=== PATIENT | male | born 1980 | race Caucasian/White ===

== ENCOUNTER 2024-04-07 09:08 | Outpatient (AMB) | payer OTHER, SELFPAY ==
[2024-04-07 09:13] VITALS: BP 116/70; PULSE 71; RESP 14; TEMP 36.6; O2SAT 97; BMI 37.6
--- NOTE | 2024-04-07 09:13 | A.OFFPC_ITS ---
Vital Signs 04/07/24 09:13 Height 5 ft 4 in Weight 219 lb 2 oz BMI 37.6 BP 116/70 Blood Pressure Location Rt brachial Position Sitting Respiration 14 Pulse 71 Pulse Source Pulse Oximeter Temp 98 F Temp Source Temporal Artery Scan Pulse Oximetry (%) 97 Oxygen Delivery Method Room Air Intake Visit Reasons: [employer], diabetes Chemistry Quality Control Analyst Required: No Accompanied by: Self / Same As Patient Allergies No Known Allergies Allergy (Verified 04/07/24 09:33) Medication List - Last Reconciled 04/07/24 by Roz Sharma CNP No Known Home Meds Tobacco use date assessed: 04/07/24 Dental Screening Dental Screen Date: 04/07/24 Did you have a dental visit in the last 12 months?: Yes Did you have a dental problem in the last 6 months where you did not have access to dental care?: No Was dental information given to patient?: Patient has dentist HPI HPI Comments History of Present Illness Details New patient Prior PCP:?[facility] Last office visit/CPE: About 5 years Acute issue(s): Diabetes -He is not currently on medication. He n otes that he was diagnosed 10 years ago and was on metformin until about 6 years ago. He notes that he stopped taking taking metformin due to massive stomach pains (especially when he to the medication without meals), diarrhea, and erectile dysfunction. He notes that he maintained a strict diet for a while. He has not been following a strict diet recently. He states that he is establishing care today because his employer has required for him to control his diabetes to maintain employment. 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 He is willing to try metformin again. No acute symptoms at this time PMHx: Diabetes, karatoconus of the right eye (does not wear prescription glass es) SurgHx: None FHx: Mom: cancer, diabetes. Dad: diabetes SocHx: Nonsmoker. Drinks alcohol occasionally. No recreational drugs He notes that his last eye exam was at [facility] in [place]: normal He is followed by [facility] Medical History (Updated 04/07/24 @ 10:06 by Roz Sharma CNP) Diabetes Surgical History (Updated 04/07/24 @ 09:28 by MILTON Montoya) No pertinent past surgical history Family History (Updated 04/07/24 @ 09:30 by MILTON Montoya) Mother Diabetes Cancer Father Diabetes Social History Housing: House Patient Tobacco Use Status: Never used Tobacco e-Cigarette/Vaping Use: Never Used service: No Current occupational status: employed 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 1. Little interest or pleasure in doing things: not at all 2. Feeling down, depressed, or hopeless: not at all 3. Trouble falling or staying asleep, or sleeping too much: not at all 4. Feeling tired or having little energy: not at all 5. Poor appetite or overeating: not at all 6. Feeling bad about yourself - or that you are a failure or have let yourself or your family down: not at all 7. Trouble concentrating on things, such as reading the newspaper or watching television: not at all 8. Moving or speaking so slowly that other people could have noticed. Or the opposite - being so fidgety or restless that you have been moving around a lot more than usual: not at all 9. Thoughts that you would be better off or of hurting yourself in some way: not at all Total score: 0 Depression Screening Interpretation: Negative Depression Screening Done: Yes [id number] - PHQ-9 Billing: Yes Source: Developed by Drs. Tu Downs, Mariely Salazar, Lui Moseley and colleagues, with an educational alpa from [employer]. Thrive Questionnaire Date Thrive assessed: 04/07/24 I am a: Patient What is your living situation today?: I have a steady place to live Within the past 12 months, did the food you bought not last and you didn't have the money to get more?: Never true Within the past 12 months, did you worry whether your food would run out before you got money to buy more?: Never true Do you have trouble paying for medicines?: No Do you have trouble getting transportation to medical appointments?: No Do you have trouble paying your heating and electricity bill?: No Do you have trouble taking care of your child, family member or friend?: No Do you have trouble with day-to-day activities such as bathing, preparing meals, shopping, managing finances, etc.?: No Are you currently unemployed and looking for a job?: No Are you interested in more education?: No Please select the resources that you would like help with: None Currently or been in a relationship where the following occur: no concerns reported THRIVE Score: 0 AUDIT C Alcohol Use Questionnaire (AUDIT-C) 1. How often do you have a drink containing alcohol?: Monthly or less 2. How many drinks containing alcohol do you have on a typical day when you are drinking?: 1 or 2 3. How often do you have six or more drinks on one occasion?: Never Total Score: 1 CHRIS-7 AMB Questionnaire CHRIS-7 Date CHRIS - 7 assessed: 04/07/24 Feeling nervous, anxious, or on edge: 0 = Not at all Not being able to stop or control worryin = Not at all Worrying too much about different things: 0 = Not at all Trouble relaxin = Not at all Being so restless that it is hard to sit still: 0 = Not at all Becoming easily annoyed or irritable: 1 = Several days Feeling afraid as if something awful might happen: 0 = Not at all Total CHRIS-7 score (0-4 normal; 5-9 mild; 10-14 moderate; 15-21 severe): 1 Source: Developed by Drs. Tu Downs, Mariely Salazar, Lui Moseley and colleagues, with an educational alpa from [employer]. CHRIS-7 Assessment Billing CHRIS-7 Assessment Tool: CHRIS-7 Assessment 87331 Review of Systems Const Details: Denies chills, Denies fatigue, Denies fever(s), Denies headache(s) and Denies weakness HEENT Denies change in vision, Denies dizziness, Denies headache(s), Denies hearing loss, Denies nasal congestion, Denies sinus pain, Denies sinus pressure and Denies sore throat Card Denies chest pain, Denies lightheadedness, Denies dyspnea and Denies other (palpitations) Resp Denies cough, Denies dyspnea and Denies wheezing GI Denies abdominal pain, Denies melena, Denies hematochezia, Denies change in bowel habits, Denies dyspepsia and Denies nausea Denies hematuria and Denies dysuria Musc Denies abnormal gait, Denies myalgias, Denies arthralgias, Denies numbness and Denies tingling Skin/Breast Denies rash, Denies unusual bruising and Denies wounds Neuro Denies abnormal gait, Denies dizziness, Denies headache(s), Denies memory loss, Denies numbness, Denies Sensory deficit (Neuro), Denies tingling and Denies weakness Psych Denies anxiety, Denies depression and Denies memory loss Endo Denies cold intolerance, Denies fatigue, Denies heat intolerance, Denies polydipsia and Denies polyuria Hesham/Lymph Denies easy bleeding and Denies easy bruising Aller/Immun Denies wheezing Physical exam (Primary Care) Vital Signs: Last Vital Signs Temp 98 F 04/07/24 09:13 Pulse 71 04/07/24 09:13 Resp 14 04/07/24 09:13 BP 116/70 04/07/24 09:13 Pulse Ox 97 04/07/24 09:13 Oxygen Delivery Method Room Air 04/07/24 09:13 BMI result Body Mass Index 37.6 Tobacco/Smoking Status: Tobacco use Status Tobacco use date assessed 04/07/24 04/07/24 09:23 Patient Tobacco Use Status Never used Tobacco 04/07/24 09:23 e-Cigarette/Vaping Use Never Used 04/07/24 09:23 PHQ-9: PHQ-9 Score PHQ-9: Total score 0 04/07/24 09:30 Depression Screening Interpretation: Negative Thrive Assessment: Date of Thrive Assessment Date Thrive assessed 04/07/24 04/07/24 09:23 Currently or been in a relationship where the following occur: no concerns reported Const Other: General: no acute distress, well developed, alert and awake Nutritional Appearance: well nourished Orientation/consciousness: patient oriented x3 HENMT Head: Yes normocephalic and Yes atraumatic Ears: hearing grossly normal bilaterally and TM's normal bilaterally General nose exam: Normal external nose present and Normal nares present Mouth: Normal oral and palatal mucosa present and moist mucous membranes Teeth and gingiva: dentition normal Throat: Yes oropharynx normal Eyes Pupils: Equal, round and reactive pupils present and Pupil accommodation reflex normal EOM: EOMs intact bilaterally Neck Neck: Yes normal visual inspection, Yes no lymphadenopathy and Yes trachea midline Thyroid: Thyroid normal Carotids: no bruits Lymphatic: no lymphadenopathy noted Chest Chest palpation & inspection: normal inspection of the chest Resp Effort & Inspection: normal respiratory effort Auscultation: clear to auscultation bilaterally Cardio Rate: regular rate Rhythm: regular rhythm Heart sounds: S1 normal heart sound present, S2 normal heart sound present, no gallops, no murmurs and no rubs Bruits: no abdominal aortic bruits and no carotid bruits GI Palpation (GI): No Abdominal aortic bruit present, Soft to palpation, nontender, No hepatosplenomegaly present and No Rebound tenderness present Auscultation: normal bowel sounds General: Yes no CVA tenderness Back/Spine/Pelvis Back: no CVA tenderness Cervical Spine: cervical ROM normal and No Cervical spine tenderness Thoracic/Lumbar Spine: thoraco-lumbar ROM normal, No pain with thoraco-lumbar ROM, No thoracic spinal tenderness and No lumbar spinal tenderness Skin General: warm and dry. Normal skin color. Normal skin turgor Lesions: no lesions Rashes: no rashes Trauma: no lacerations or abrasions Wounds: no wounds Nails: normal Neuro General: patient oriented x3, gait normal and CN's II-XI intact bilaterally Cranial nerves: Yes Equal, round and reactive pupils present Cognition (Neuro): normal cognition Gait exam (Neuro): Normal gait present Motor exam (neuro): 5/5 motor strength present throughout Sensory Exam: No Sensory deficit (Neuro) Deep tendon reflexes (DTR's): Right patellar reflex intensity grade: 2+ and Left patellar reflex intensity grade: 2+ Extrem General: Yes normal to inspection, No edema and No calf tenderness Psych Appearance: grossly normal Affect: normal affect Attitude: cooperative Thought process: Normal thought process present Results AMB Hemoglobin A1c AMB Hemoglobin A1c 9.4 % Last Edit by MILTON Montoya on 04/07/24 09:3 3 Results Reviewed Results Reviewed: Laboratory Last Values Hgb A1c (Clinic) 9.4 % (4.0-6.0) H 04/07/24 09:30 Assessment and Plan Assessment & Plan (1) Normal physical examination, routine: Code(s): Z00.00 - Encounter for general adult medical examination without abnormal findings Plan: No significant physical restrictions or limitations noted Continue current treatment regimen Healthy diet and routine exercise encouraged Advised to sign a release to obtain health record from his nurse advocate Follow-up in 1 month for diabetes and labs review or return sooner with symptoms or concerns Verbalized understanding and agreed with treatment plan (2) Diabetes: Code(s): E11.9 - Type 2 diabetes mellitus without complications Plan: A1c today is 9.4%, above goal of less than 7.0% Metformin 500 mg twice daily ordered. Advised to take as prescribed and with meal. Instructed on the risks, benefits, and potential adverse reaction of the medication ADA diet, including limiting carbs such as rice, bread, pasta, potatoes, and routine exercise encouraged Advised to check his fasting and random glucose daily, record readings, and bring to next appointment Declines referral to dietitian/director of critical care or diabetic nurse navigator Follow-up in 1 month or return sooner with symptoms or concerns Verbalized understanding and agreed with treatment plan (3) Keratoconus of right eye: Code(s): H18.601 - Keratoconus, unspecified, right eye Plan: No acute symptoms Followed by ophthalmology (4) Obesity (BMI 30-39.9): Code(s): E66.9 - Obesity, unspecified Plan: He currently weighs 219 lb, BMI is 37.6 Declines referral to dietitian/director of critical care or weight management Healthy diet and routine exercise encouraged Follow-up with symptoms or concerns Verbalized understanding and agreed with the treatment plan (5) Laboratory tests ordered as part of a complete physical exam (CPE): Code(s): Z00.00 - Encounter for general adult medical examination without abnormal findings Plan: Fasting labs ordered as part of a complete physical exam. Advised to fast for at least 10 hours before getting labs drawn. May drink water Verbalized understanding and agreed with treatment plan. Orders: Orders Complete Blood Count Auto Diff Today Z00.00 - Encounter for general adult medical examination without abnormal findings TSH reflex Free T4 Today Z00.00 - Encounter for general adult medical examination without abnormal findings Microalbumin, Random (w Creat) Today E11.9 - Type 2 diabetes mellitus without complications AMB Hemoglobin A1c Today Z13.9 - Encounter for screening, unspecified Comprehensive [place]. Panel Fast Today Z00.00 - Encounter for general adult medical examination without abnormal findings Lipid Panel Today E11.9 - Type 2 diabetes mellitus without complications, Z00.00 - Encounter for general adult medical examination without abnormal findings UA CC w/rflx Micro + Cult Today Z00.00 - Encounter for general adult medical examination without abnormal findings PSA, Ultra Sensitive Today Z00.00 - Encounter for general adult medical examination without abnormal findings Medications: New metformin 500 mg PO BIDWMEAL 30 days 60 tabs 3RF Coding Level of Care Code New Pt Level 4 (97237) New Pt Prev Care 40-64y(39594) Diagnoses Normal physical examination, routine Z00.00 Diabetes E11.9 Keratoconus of right eye H18.601 Obesity (BMI 30-39.9) E66.9 Laboratory tests ordered as part of a complete physical exam (CPE) Z00.00 Additional Codes CHRIS-7 Assessment Billing - CHRIS-7 Assessment Tool: CHRIS-7 Assessment 54247 ([id number])
== END 2024-04-07 10:06 | disposition home or self-care (01) ==
PROVIDERS: Visit Provider Nurse Practitioner Family
DX: Z00.00 Encounter for general adult medical examination without abnormal findings (principal); E11.9 Type 2 diabetes mellitus without complications; E66.9 Obesity, unspecified; Z68.37 Body mass index [BMI] 37.0-37.9, adult; H18.601 Keratoconus, unspecified, right eye
CPT/HCPCS: 83036; 99204; 99386

== ENCOUNTER 2024-04-07 10:27 | Outpatient (REF) | payer OTHER, SELFPAY ==
[2024-04-07 14:19] LABS: MANUAL DIFF FLAG NO
[2024-04-07 14:24] LABS: Appearance Urine Clear; Color Urine Yellow; Glucose Urine UA 100 mg/dL (Negative); Leukocyte Esterase Urine Negative (Negative); Nitrite Urine Negative (Negative); PH 5.5 (5.0-9.0); Urine Blood Negative (Negative); Urine Ketones Negative (Negative); Urine Protein Negative (Neg-Trace)
[2024-04-07 14:25] LABS: Basophils Percent Auto 0.5 % (0-2); Eosinophils Absolute Auto 0.3 X10*3/uL (0.0-0.4); Eosinophils Percent Auto 5.6 % (0-4); Hematocrit 41.8 % (42.0-52.0); Hemoglobin 12.9 g/dl (14.0-18.0); Imm Gran Abs Auto 0.02 X10*3/uL (0.00-0.03); Imm Gran Pct Auto 0.3 % (0.0-0.4); Lymphocytes Absolute Auto 2.4 X10*3/uL (1.2-4.9); Mean Corpuscular HGB Conc 30.9 g/dl (31.0-36.0); Mean Corpuscular Hemoglobin 19.3 pg (27.0-33.0); Mean Corpuscular Volume 62.6 fL (80.0-98.0); Mean Platelet Volume 8.7 fL (9.4-12.4); Monocytes Absolute Auto 0.5 X10*3/uL (0.1-1.2); Neutrophils Absolute Auto 2.5 x10*3/uL (2.0-8.3); Neutrophils Percent Auto 43.6 % (45-73); Platelet Count 306 X10*3/uL (160-400); Red Blood Count 6.68 X10*6/uL (4.60-5.80); Red Cell Distribution Width 18.3 % (11.0-16.0); White Blood Count 5.8 X10*3/uL (4.8-10.8)
[2024-04-07 14:54] LABS: Creatinine Urine 87.07 mg/dL
[2024-04-07 15:03] LABS: Alanine Aminotransferase 36 U/L (0-40); Albumin Level 4.5 g/dL (3.5-5.0); Alkaline Phosphatase 39 U/L (39-117); Anion Gap 12 (12-20); Aspartate Amino Transferase 19 U/L (5-37); Bilirubin Total 0.8 mg/dL (0.0-1.0); Blood Urea Nitrogen 19 mg/dL (9-16); Calcium 9.6 mg/dL (8.4-10.2); Carbon Dioxide 23 mmol/L (22-29); Chloride 107 mmol/L (96-108); Cholesterol 179 mg/dL (<200); Estimated Glomerular Filt Rate > 60; Glucose Fasting 214 mg/dL (60-99); HDL Cholesterol 32 mg/dL (>40); LDL Cholesterol Calculated 118 mg/dL (<100); Potassium 4.7 mmol/L (3.3-5.1); Sodium 137 mmol/L (135-145); Total Protein 7.4 g/dL (6.5-8.0); Triglycerides 145 mg/dL (<150)
[2024-04-07 15:21] LABS: TSH reflex Free T4 1.69 uIU/mL (0.32-4.0)
[2024-04-07 15:34] LABS: Retic HGB Equivalent 22.3 pg (30.0-35.0); Reticulocyte Percent 1.5 % (0.5-1.8); Reticulocytes Absolute 0.101 X10*6/uL (0.026-0.095)
[2024-04-07 15:46] LABS: Iron 60 mcg/dL (45-160); Percent Iron Saturation 19 % (15-50); Total Iron Binding Capacity 309 mcg/dL (228-428); Unsaturated Iron Binding 249 ug/dL
[2024-04-07 16:06] LABS: Ferritin 483 ng/mL (20-250)
[2024-04-13 17:28] LABS: PSA, Ultra Sensitive 0.09 ng/mL
== END 2024-04-07 10:28 | disposition home or self-care (01) ==
LOC: HO.WFDLDS 10:27
PROVIDERS: Visit Provider Nurse Practitioner Family
DX: Z00.00 Encounter for general adult medical examination without abnormal findings (principal); E11.9 Type 2 diabetes mellitus without complications; Z12.5 Encounter for screening for malignant neoplasm of prostate
CPT/HCPCS: 36415; 80053; 80061; 81003; 82043; 82570; 82728; 83540; 84153; 84443; 85025; 85045

== ENCOUNTER 2024-05-05 08:59 | Outpatient (AMB) | payer OTHER, SELFPAY ==
[2024-05-05 09:03] VITALS: BP 124/82; PULSE 108; RESP 14; TEMP 36.5; O2SAT 98; BMI 37.0
--- NOTE | 2024-05-05 09:03 | MHC.PC.OV ---
Vital Signs 05/05/24 09:03 Height 5 ft 4 in Weight 215 lb 8 oz BMI 37.0 BP 124/82 Blood Pressure Location Rt brachial Position Sitting Respiration 14 Pulse 108 H Pulse Source Pulse Oximeter Temp 97.7 F Temp Source Temporal Artery Scan Pulse Oximetry (%) 98 Oxygen Delivery Method Room Air Intake Visit Reasons: follow up dm + labs Second Hand Paper Machine Required: No Accompanied by: Self / Same As Patient Allergies No Known Allergies Allergy (Verified 05/05/24 09:17) Medication List - Last Reconciled 05/05/24 by Roz Sharma CNP metformin 500 mg PO BIDWMEAL 30 days Tobacco use date assessed: 04/07/24 Dental Screening Dental Screen Date: 04/07/24 HPI HPI Comments History of Present Illness Details 43-year-old male presents for diabetes and review of recent lab results He is on metformin 500 mg twice daily which he admits to taking as prescribed without adverse reactions. He initially experienced occasional diarrhea He brought his blood glucose for the past 1 month. His fasting and random glucose have average below 200 He notes that he is [place]/mediterranean descent. 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 Tu Downs, Mariely Salazar, Lui Moseley and colleagues, with an educational alpa from [employer]. Review of Systems Const Details: Const Denies chills, Denies fatigue, Denies fever(s), Denies headache(s) and Denies weakness ENT Denies dizziness and Denies headache(s) Card Denies chest pain, Denies lightheadedness, Denies dyspnea and Denies other (Palpitations) Resp Denies cough, Denies dyspnea, Denies wheezing and Denies other ( shortness of breath) GI Denies abdominal pain, Denies melena, Denies hematochezia, Denies change in bowel habits, Denies dyspepsia and Denies nausea Denies hematuria and Denies dysuria Musc Denies abnormal gait, Denies myalgias, Denies arthralgias, Denies numbness and Denies tingling Skin/Breast Denies rash, Denies unusual bruising and Denies wounds Neuro Denies abnormal gait, Denies dizziness, Denies headache(s), Denies memory loss, Denies numbness, Denies Sensory deficit (Neuro), Denies tingling and Denies weakness Psych Denies anxiety, Denies depression, Denies memory loss Endo Denies cold intolerance, Denies fatigue, Denies heat intolerance, Denies polydipsia and Denies polyuria Aller/Immun Denies wheezing Physical exam (Primary Care) Vital Signs: Last Vital Signs Temp 97.7 F 05/05/24 09:03 Pulse 108 H 05/05/24 09:03 Resp 14 05/05/24 09:03 BP 124/82 05/05/24 09:03 Pulse Ox 98 05/05/24 09:03 Oxygen Delivery Method Room Air 05/05/24 09:03 BMI result Body Mass Index 37.0 Tobacco/Smoking Status: Tobacco use Status Tobacco use date assessed 04/07/24 05/05/24 09:04 Patient Tobacco Use Status Never used Tobacco 05/05/24 09:04 e-Cigarette/Vaping Use Never Used 05/05/24 09:04 Thrive Assessment: Date of Thrive Assessment Date Thrive assessed 04/07/24 05/05/24 09:04 Const Other: General: no acute distress and well developed Nutritional Appearance: well nourished Orientation/consciousness: patient oriented x3 HENMT Head: Yes normocephalic and Yes atraumatic Eyes General: appearance normal, both eyes and all related structures Pupils: Equal, round and reactive pupils present EOM: EOMs intact bilaterally Resp Effort & Inspection: normal respiratory effort Auscultation: clear to auscultation bilaterally Cardio Rate: regular rate Rhythm: regular rhythm Heart sounds: S1 normal heart sound present, S2 normal heart sound present, no gallops, no murmurs and no rubs GI Palpation (GI): No Abdominal aortic bruit present, Soft to palpation, nontender, No hepatosplenomegaly present and No Rebound tenderness present Auscultation: normal bowel sounds General: Yes no CVA tenderness Back/Spine/Pelvis Back: no CVA tenderness Cervical Spine: cervical ROM normal and No Cervical spine tenderness Thoracic/Lumbar Spine: thoraco-lumbar ROM normal, No pain with thoraco-lumbar ROM, No thoracic spinal tenderness and No lumbar spinal tenderness Extrem General: Yes normal to inspection, No edema and No calf tenderness Skin General: warm and dry. Normal skin color. Normal skin turgor Neuro General: patient oriented x3, gait normal and no focal neuro deficit Cranial nerves: Yes Equal, round and reactive pupils present Cognition (Neuro): normal cognition Gait exam (Neuro): Normal gait present Sensory Exam: No Sensory deficit (Neuro) Psych Appearance: grossly normal Affect: normal affect Attitude: cooperative Thought process: Normal thought process present Assessment and Plan Assessment & Plan (1) Diabetes: Code(s): E11.9 - Type 2 diabetes mellitus without complications Plan: Recent A1c on 04/07/2024 is 9.4%, above goal of less than 7.0%; Fasting glucose is elevated, 214; urine microalbumin/creatinine ratio is 39.0 Tolerating metformin Continue current treatment regimen ADA diet and routine exercise encouraged Follow-up in 2 months or sooner with worsening or new symptoms Verbalized understanding and agreed with treatment plan (2) Thalassemia: Code(s): D56.9 - Thalassemia, unspecified Plan: Recent H&H is slightly low, 12.9/41.8 respectively; MCV is low, 62.6; RDW is elevated, 18.3 Normal iron profile Ferritin level is elevated, 483 Will repeat CBC and check vitamin B12 and folate levels (3) Dyslipidemia: Code(s): E78.5 - Hyperlipidemia, unspecified Plan: Recent LDL is 118, slightly above goal of less than 100. HDL is 32 Advised to limit foods high in saturated fat and avoid foods high in trans fat Routine exercise encouraged Will recheck lipid profile in 2 months. Advised to fast for 10-12 hours, may drink water only, and get blood work done before his next visit Follow-up in 2 months Verbalized understanding and agreed with treatment plan Orders: Orders Complete Blood Count no Diff Today D64.9 - Anemia, unspecified Lipid Panel 2 Months E78.5 - Hyperlipidemia, unspecified Vitamin B12 and Folate Today D64.9 - Anemia, unspecified Coding Level of Care Code Est Pt Level 4 (02844) Complex EM visit Add On G2211 Diagnoses Diabetes E11.9 Thalassemia D56.9 Dyslipidemia E78.5
== END 2024-05-05 09:38 | disposition home or self-care (01) ==
PROVIDERS: Visit Provider Nurse Practitioner Family
DX: E11.9 Type 2 diabetes mellitus without complications (principal); D56.9 Thalassemia, unspecified; E78.5 Hyperlipidemia, unspecified
CPT/HCPCS: 99214; G2211

== ENCOUNTER 2024-05-05 09:59 | Outpatient (REF) | payer OTHER, SELFPAY ==
[2024-05-05 11:30] LABS: Hematocrit 41.8 % (42.0-52.0); Hemoglobin 12.8 g/dl (14.0-18.0); Immature Retic Fraction 15.4 % (2.3-13.4); Mean Corpuscular HGB Conc 30.6 g/dl (31.0-36.0); Mean Corpuscular Hemoglobin 19.2 pg (27.0-33.0); Mean Corpuscular Volume 62.6 fL (80.0-98.0); Platelet Count 301 X10*3/uL (160-400); Red Blood Count 6.68 X10*6/uL (4.60-5.80); Red Cell Distribution Width 17.9 % (11.0-16.0); Reticulocyte Percent 1.2 % (0.5-1.8); White Blood Count 6.2 X10*3/uL (4.8-10.8)
[2024-05-05 12:05] LABS: Iron 72 mcg/dL (45-160); Percent Iron Saturation 24 % (15-50); Total Iron Binding Capacity 302 mcg/dL (228-428); Unsaturated Iron Binding 230 ug/dL
[2024-05-05 12:22] LABS: Ferritin 455 ng/mL (20-250)
[2024-05-05 12:27] LABS: Folate 8.8 ng/mL (> or = 4.0); Vitamin B12 603 pg/mL (200-900)
== END 2024-05-05 10:00 | disposition home or self-care (01) ==
LOC: HO.WFDLDS 09:59
PROVIDERS: Visit Provider Nurse Practitioner Family
DX: D64.9 Anemia, unspecified (principal)
CPT/HCPCS: 36415; 82607; 82728; 82746; 83540; 85027; 85045

== ENCOUNTER 2024-07-07 09:31 | Outpatient (AMB) | payer OTHER, SELFPAY | END 2024-07-07 09:36 | disposition home or self-care (01) | LOC: HO.HMGFM 09:31 | PROVIDERS: PCP Nurse Practitioner Family; Visit Provider Nurse Practitioner Family | DX: E11.69 Type 2 diabetes mellitus with other specified complication (principal); E78.5 Hyperlipidemia, unspecified | CPT/HCPCS: 83036 ==

== ENCOUNTER 2024-07-07 09:50 | Outpatient (REF) | payer OTHER, SELFPAY ==
[2024-07-07 12:28] LABS: Cholesterol 167 mg/dL (<200); HDL Cholesterol 31 mg/dL (>40); LDL Cholesterol Calculated 105 mg/dL (<100); Triglycerides 157 mg/dL (<150)
== END 2024-07-07 09:51 | disposition home or self-care (01) ==
LOC: HO.WFDLDS 09:50
PROVIDERS: Visit Provider Nurse Practitioner Family
DX: E78.5 Hyperlipidemia, unspecified (principal)
CPT/HCPCS: 36415; 80061

== ENCOUNTER → 2024-10-13 08:30 | Outpatient (BNVA) | payer OTHER, SELFPAY | PROVIDERS: PCP Nurse Practitioner Family; Visit Provider Nurse Practitioner Family ==

== ENCOUNTER 2024-10-20 09:53 | Outpatient (AMB) | payer OTHER, SELFPAY ==
--- NOTE | 2024-10-20 09:55 | MHC.PC.OV ---
Vital Signs 10/20/24 09:59 10/20/24 10:27 Height 5 ft 4 in Weight 224 lb 8 oz BMI 38.5 BP 130/70 120/80 Blood Pressure Location Rt brachial Lt brachial Position Sitting Sitting Respiration 16 Pulse 69 Pulse Source Pulse Oximeter Temp 97.7 F Temp Source Oral Pulse Oximetry (%) 97 Oxygen Delivery Method Room Air Intake Visit Reasons: A1C Check Intake Note: patient here for AIC check Motor Setter Required: No Allergies No Known Allergies Allergy (Verified 10/20/24 10:21) Medication List - Last Reconciled 10/20/24 by Roz Sharma CNP metformin 850 mg PO BIDWMEAL 30 days Tobacco use date assessed: 10/20/24 Dental Screening Dental Screen Date: 10/20/24 Did you have a dental visit in the last 12 months?: No Did you have a dental problem in the last 6 months where you did not have access to dental care?: No Was dental information given to patient?: Patient has dentist HPI HPI Comments History of Present Illness Details 44-year-old male presents for diabetes follow-up. He admits to taking metformin 850 mg twice daily without adverse reactions. He has been making healthy dietary changes, including limiting carbs. He offers no complaints and denies acute symptoms at this time. 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 1. Little interest or pleasure in doing things: not at all 2. Feeling down, depressed, or hopeless: not at all 3. Trouble falling or staying asleep, or sleeping too much: not at all 4. Feeling tired or having little energy: several days 5. Poor appetite or overeating: not at all 6. Feeling bad about yourself - or that you are a failure or have let yourself or your family down: not at all 7. Trouble concentrating on things, such as reading the newspaper or watching television: not at all 8. Moving or speaking so slowly that other people could have noticed. Or the opposite - being so fidgety or restless that you have been moving around a lot more than usual: not at all 9. Thoughts that you would be better off or of hurting yourself in some way: not at all Total score: 1 Depression Screening Interpretation: Negative Depression Screening Done: Yes 31143 - PHQ-9 Billing: Yes Source: Developed by Drs. Tu Downs, Mariely Salazar, Lui Moseley and colleagues, with an educational alpa from [employer]. Thrive Questionnaire Date Thrive assessed: 10/12/24 I am a: Patient What is your living situation today?: I choose not to answer this question Within the past 12 months, did the food you bought not last and you didn't have the money to get more?: I choose not to answer this question Within the past 12 months, did you worry whether your food would run out before you got money to buy more?: I choose not to answer this question Do you have trouble paying for medicines?: I choose not to answer this question Do you have trouble getting transportation to medical appointments?: I choose not to answer this question Do you have trouble paying your heating and electricity bill?: I choose not to answer this question Do you have trouble taking care of your child, family member or friend?: I choose not to answer this question Do you have trouble with day-to-day activities such as bathing, preparing meals, shopping, managing finances, etc.?: I choose not to answer this question Are you currently unemployed and looking for a job?: I choose not to answer this question Are you interested in more education?: I choose not to answer this question THRIVE Score: 0 AUDIT C Alcohol Use Questionnaire (AUDIT-C) 1. How often do you have a drink containing alcohol?: 2-4 times a month 2. How many drinks containing alcohol do you have on a typical day when you are drinking?: 1 or 2 3. How often do you have six or more drinks on one occasion?: Never Total Score: 2 Score Reviewed/Action Taken: Yes CHRIS-7 AMB Questionnaire CHRIS-7 Date CHRIS - 7 assessed: 10/20/24 Feeling nervous, anxious, or on edge: 0 = Not at all Not being able to stop or control worryin = Not at all Worrying too much about different things: 0 = Not at all Trouble relaxin = Not at all Being so restless that it is hard to sit still: 0 = Not at all Becoming easily annoyed or irritable: 1 = Several days Feeling afraid as if something awful might happen: 0 = Not at all Total CHRIS-7 score (0-4 normal; 5-9 mild; 10-14 moderate; 15-21 severe): 1 Source: Developed by Drs. Tu Downs, Mariely Salazar, Lui Moseley and colleagues, with an educational alpa from [employer]. CHRIS-7 Assessment Billing CHRIS-7 Assessment Tool: CHRIS-7 Assessment 85919 Review of Systems Const Details: Const Denies chills, Denies fatigue, Denies fever(s), Denies headache(s) and Denies weakness ENT Denies dizziness and Denies headache(s) Card Denies chest pain, Denies lightheadedness, Denies dyspnea and Denies other (Palpitations) Resp Denies cough, Denies dyspnea, Denies wheezing and Denies other ( shortness of breath) GI Denies abdominal pain, Denies melena, Denies hematochezia, Denies change in bowel habits, Denies dyspepsia and Denies nausea Denies hematuria and Denies dysuria Musc Denies abnormal gait, Denies myalgias, Denies arthralgias, Denies numbness and Denies tingling Skin/Breast Denies rash, Denies unusual bruising and Denies wounds Neuro Denies abnormal gait, Denies dizziness, Denies headache(s), Denies memory loss, Denies numbness, Denies Sensory deficit (Neuro), Denies tingling and Denies weakness Psych Denies anxiety, Denies depression, Denies memory loss Endo Denies cold intolerance, Denies fatigue, Denies heat intolerance, Denies polydipsia and Denies polyuria Aller/Immun Denies wheezing Physical exam (Primary Care) Vital Signs: Last Vital Signs Temp 97.7 F 10/20/24 09:59 Pulse 69 10/20/24 09:59 Resp 16 10/20/24 09:59 BP 120/80 10/20/24 10:27 Pulse Ox 97 10/20/24 09:59 Oxygen Delivery Method Room Air 10/20/24 09:59 BMI result Body Mass Index 38.5 Tobacco/Smoking Status: Tobacco use Status Tobacco use date assessed 10/20/24 10/20/24 10:04 Patient Tobacco Use Status Never used Tobacco 10/20/24 09:56 e-Cigarette/Vaping Use Never Used 10/20/24 09:56 PHQ-9: PHQ-9 Score PHQ-9: Total score 1 10/20/24 10:23 Depression Screening Interpretation: Negative Thrive Assessment: Date of Thrive Assessment Date Thrive assessed 10/12/24 10/20/24 09:56 Const Other: General: no acute distress and well developed Nutritional Appearance: well nourished Orientation/consciousness: patient oriented x3 HENMT Head: Yes normocephalic and Yes atraumatic Eyes General: appearance normal, both eyes and all related structures Pupils: Equal, round and reactive pupils present EOM: EOMs intact bilaterally Resp Effort & Inspection: normal respiratory effort Auscultation: clear to auscultation bilaterally Cardio Rate: regular rate Rhythm: regular rhythm Heart sounds: S1 normal heart sound present, S2 normal heart sound present, no gallops, no murmurs and no rubs GI Palpation (GI): No Abdominal aortic bruit present, Soft to palpation, nontender, No hepatosplenomegaly present and No Rebound tenderness present Auscultation: normal bowel sounds General: Yes no CVA tenderness Back/Spine/Pelvis Back: no CVA tenderness Cervical Spine: cervical ROM normal and No Cervical spine tenderness Thoracic/Lumbar Spine: thoraco-lumbar ROM normal, No pain with thoraco-lumbar ROM, No thoracic spinal tenderness and No lumbar spinal tenderness Extrem General: Yes normal to inspection, No edema and No calf tenderness Skin General: warm and dry. Normal skin color. Normal skin turgor Neuro General: patient oriented x3, gait normal and no focal neuro deficit Cranial nerves: Yes Equal, round and reactive pupils present Cognition (Neuro): normal cognition Gait exam (Neuro): Normal gait present Sensory Exam: No Sensory deficit (Neuro) Psych Appearance: grossly normal Affect: normal affect Attitude: cooperative Thought process: Normal thought process present Results AMB Hemoglobin A1c AMB Hemoglobin A1c 8.3 % Last Edit by Cherie Gottlieb on 10/20/24 10:43 Coding Level of Care Code Est Pt Level 4 (39029) Diagnoses Diabetes E11.9 Dyslipidemia E78.5 Additional Codes CHRIS-7 Assessment Billing - CHRIS-7 Assessment Tool: CHRIS-7 Assessment 69863 ([id number]) PHQ-9 - 72229 - PHQ-9 Billing: Yes ([id number]) Assessment & Plan Assessment & Plan (1) Diabetes: Code(s): E11.9 - Type 2 diabetes mellitus without complications Category: Medical Plan: A1c today is 8.3%, above goal of less than 7.0%. Previous A1c was 8.3%. Will increase metformin to 1000 mg twice daily. Advised to take as prescribed. ADA diet and routine exercise encouraged. Encouraged to check his blood sugar 3 times daily, before breakfast, lunch, and dinner, record readings and bring log to his next appointment. Follow-up in 3 months or sooner with symptoms or concerns. Verbalized understanding and agreed with treatment plan. (2) Dyslipidemia: Code(s): E78.5 - Hyperlipidemia, unspecified Category: Medical Plan: He has been fasting for at least 12 hours and will get lipid panel blood work done today. Will review results and make changes as needed. Advised to limit foods high in saturated fat and avoid foods high in trans fat. Orders: Orders AMB Hemoglobin A1c Today Z13.9 - Encounter for screening, unspecified Lipid Panel Today E78.5 - Hyperlipidemia, unspecified Medications: New metformin 1,000 mg PO BIDWMEAL 30 days 60 tabs 3RF Discontinued metformin Discontinued Reason: Doctor's Order 850 mg PO BIDWMEAL 30 days 60 tabs 3RF
[2024-10-20 09:59] VITALS: BP 130/70; PULSE 69; RESP 16; TEMP 36.5; O2SAT 97; BMI 38.5
[2024-10-20 10:27] VITALS: BP 120/80
== END 2024-10-20 10:38 | disposition home or self-care (01) ==
PROVIDERS: PCP Nurse Practitioner Family; Visit Provider Nurse Practitioner Family
DX: E11.9 Type 2 diabetes mellitus without complications (principal); E78.5 Hyperlipidemia, unspecified; Z13.9 Encounter for screening, unspecified

== ENCOUNTER → 2024-10-20 09:53 | Outpatient (BNVA) | payer OTHER, SELFPAY | PROVIDERS: PCP Nurse Practitioner Family; Visit Provider Nurse Practitioner Family | DX: E11.9 Type 2 diabetes mellitus without complications (principal); E78.5 Hyperlipidemia, unspecified | CPT/HCPCS: 83036; 96127 ==

== ENCOUNTER 2024-10-20 10:52 | Outpatient (REF) | payer OTHER, SELFPAY ==
[2024-10-20 14:32] LABS: Cholesterol 141 mg/dL (<200); HDL Cholesterol 31 mg/dL (>40); LDL Cholesterol Calculated 72 mg/dL (<100); Triglycerides 192 mg/dL (<150)
== END 2024-10-20 10:53 | disposition home or self-care (01) ==
LOC: HO.WFDLDS 10:52
PROVIDERS: Visit Provider Nurse Practitioner Family
DX: E78.5 Hyperlipidemia, unspecified (principal)
CPT/HCPCS: 36415; 80061

== ENCOUNTER 2025-02-09 12:46 | Outpatient (AMB) | payer OTHER, SELFPAY ==
--- NOTE | 2025-02-09 12:49 | MHC.PC.OV ---
Vital Signs 02/09/25 12:56 Height 5 ft 4 in Weight 216 lb BMI 37.1 BP 126/82 Blood Pressure Location Rt brachial Position Sitting Pulse 80 Pulse Source Pulse Oximeter Temp 98.6 F Temp Source Oral Pulse Oximetry (%) 96 Oxygen Delivery Method Room Air Intake Visit Reasons: 3 mos DM thee from 01/26/25 Intake Note: Darrell presents in the office today for a follow up to his DM. Digital Engineer Required: No Allergies No Known Allergies Allergy (Verified 02/09/25 13:04) Medication List - Last Reconciled 02/09/25 by Roz Sharma CNP cholecalciferol (vitamin D3) 125 mcg PO DAILY metformin 1,000 mg PO BIDWMEAL 30 days Tobacco use date assessed: 02/09/25 Dental Screening Dental Screen Date: 02/09/25 Did you have a dental visit in the last 12 months?: No Did you have a dental problem in the last 6 months where you did not have access to dental care?: No Was dental information given to patient?: Patient has dentist HPI HPI Comments History of Present Illness Details 44-year-old male presents for diabetes follow-up. He admits to taking metformin 1000 mg twice daily without adverse reactions. Fenofibrate was ordered for hypertriglyceridemia. However, he never start the medication because he wants to try eating healthy instead. He has been making healthy dietary choices, including low carbs. He is active but does not exercise. He offers no complaints and denies acute symptoms at this time. 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 1. Little interest or pleasure in doing things: not at all 2. Feeling down, depressed, or hopeless: not at all 3. Trouble falling or staying asleep, or sleeping too much: not at all 4. Feeling tired or having little energy: not at all 5. Poor appetite or overeating: not at all 6. Feeling bad about yourself - or that you are a failure or have let yourself or your family down: not at all 7. Trouble concentrating on things, such as reading the newspaper or watching television: not at all 8. Moving or speaking so slowly that other people could have noticed. Or the opposite - being so fidgety or restless that you have been moving around a lot more than usual: not at all 9. Thoughts that you would be better off or of hurting yourself in some way: not at all Total score: 0 Depression Screening Interpretation: Negative Depression Screening Done: Yes 62902 - PHQ-9 Billing: Patient declined-do not bill Source: Developed by Drs. Tu Downs, Mariely Salazar, Lui Moseley and colleagues, with an educational alpa from [employer]. Thrive Questionnaire Date Thrive assessed: 02/09/25 I am a: Patient What is your living situation today?: I have a steady place to live Within the past 12 months, did the food you bought not last and you didn't have the money to get more?: Never true Within the past 12 months, did you worry whether your food would run out before you got money to buy more?: Never true Do you have trouble paying for medicines?: No Do you have trouble getting transportation to medical appointments?: No Do you have trouble paying your heating and electricity bill?: No Do you have trouble taking care of your child, family member or friend?: No Do you have trouble with day-to-day activities such as bathing, preparing meals, shopping, managing finances, etc.?: No Are you currently unemployed and looking for a job?: No Are you interested in more education?: No Please select the resources that you would like help with: None Currently or been in a relationship where the following occur: No concerns reported THRIVE Score: 0 AUDIT C Alcohol Use Questionnaire (AUDIT-C) 1. How often do you have a drink containing alcohol?: Monthly or less 2. How many drinks containing alcohol do you have on a typical day when you are drinking?: 1 or 2 3. How often do you have six or more drinks on one occasion?: Never Total Score: 1 CHRIS-7 AMB Questionnaire CHRIS-7 Date CHRIS - 7 assessed: 02/09/25 Feeling nervous, anxious, or on edge: 0 = Not at all Not being able to stop or control worryin = Not at all Worrying too much about different things: 0 = Not at all Trouble relaxin = Not at all Being so restless that it is hard to sit still: 0 = Not at all Becoming easily annoyed or irritable: 1 = Several days Feeling afraid as if something awful might happen: 0 = Not at all Total CHRIS-7 score (0-4 normal; 5-9 mild; 10-14 moderate; 15-21 severe): 1 Source: Developed by Drs. Tu Downs, Mariely Salazar, Lui Moseley and colleagues, with an educational alpa from [employer]. CHRIS-7 Assessment Billing CHRIS-7 Assessment Tool: CHRIS-7 Assessment 39709 Review of Systems Const Details: Const Denies chills, Denies fatigue, Denies fever(s), Denies headache(s) and Denies weakness ENT Denies dizziness and Denies headache(s) Card Denies chest pain, Denies lightheadedness, Denies dyspnea and Denies other (Palpitations) Resp Denies cough, Denies dyspnea, Denies wheezing and Denies other ( shortness of breath) GI Denies abdominal pain, Denies melena, Denies hematochezia, Denies change in bowel habits, Denies dyspepsia and Denies nausea Denies hematuria and Denies dysuria Musc Denies abnormal gait, Denies myalgias, Denies arthralgias, Denies numbness and Denies tingling Skin/Breast Denies rash, Denies unusual bruising and Denies wounds Neuro Denies abnormal gait, Denies dizziness, Denies headache(s), Denies memory loss, Denies numbness, Denies Sensory deficit (Neuro), Denies tingling and Denies weakness Psych Denies anxiety, Denies depression, Denies memory loss Endo Denies cold intolerance, Denies fatigue, Denies heat intolerance, Denies polydipsia and Denies polyuria Aller/Immun Denies wheezing Physical exam (Primary Care) Vital Signs: Last Vital Signs Temp 98.6 F 02/09/25 12:56 Pulse 80 02/09/25 12:56 BP 126/82 02/09/25 12:56 Pulse Ox 96 02/09/25 12:56 Oxygen Delivery Method Room Air 02/09/25 12:56 BMI result Body Mass Index 37.1 Tobacco/Smoking Status: Tobacco use Status Tobacco use date assessed 02/09/25 02/09/25 12:59 Patient Tobacco Use Status Never used Tobacco 02/09/25 12:55 e-Cigarette/Vaping Use Never Used 02/09/25 12:55 PHQ-9: PHQ-9 Score PHQ-9: Total score 0 02/09/25 13:00 Depression Screening Interpretation: Negative Thrive Assessment: Date of Thrive Assessment Date Thrive assessed 02/09/25 02/09/25 12:59 Currently or been in a relationship where the following occur: No concerns reported Const Other: General: no acute distress and well developed Nutritional Appearance: well nourished Orientation/consciousness: patient oriented x3 HENMT Head: Yes normocephalic and Yes atraumatic Eyes General: appearance normal, both eyes and all related structures Pupils: Equal, round and reactive pupils present EOM: EOMs intact bilaterally Resp Effort & Inspection: normal respiratory effort Auscultation: clear to auscultation bilaterally Cardio Rate: regular rate Rhythm: regular rhythm Heart sounds: S1 normal heart sound present, S2 normal heart sound present, no gallops, no murmurs and no rubs GI Palpation (GI): No Abdominal aortic bruit present, Soft to palpation, nontender, No hepatosplenomegaly present and No Rebound tenderness present Auscultation: normal bowel sounds General: Yes no CVA tenderness Back/Spine/Pelvis Back: no CVA tenderness Cervical Spine: cervical ROM normal and No Cervical spine tenderness Thoracic/Lumbar Spine: thoraco-lumbar ROM normal, No pain with thoraco-lumbar ROM, No thoracic spinal tenderness and No lumbar spinal tenderness Extrem General: Yes normal to inspection, No edema and No calf tenderness Skin General: warm and dry. Normal skin color. Normal skin turgor Neuro General: patient oriented x3, gait normal and no focal neuro deficit Cranial nerves: Yes Equal, round and reactive pupils present Cognition (Neuro): normal cognition Gait exam (Neuro): Normal gait present Sensory Exam: No Sensory deficit (Neuro) Psych Appearance: grossly normal Affect: normal affect Attitude: cooperative Thought process: Normal thought process present Results AMB Hemoglobin A1c AMB Hemoglobin A1c 7.1 % Last Edit by Sarah Rubalcava CMA on 02/09/25 13:13 Coding Level of Care Code Est Pt Level 3 (13846) Diagnoses Diabetes E11.9 Dyslipidemia E78.5 Laboratory tests ordered as part of a complete physical exam (CPE) Z00.00 Additional Codes CHRIS-7 Assessment Billing - CHRIS-7 Assessment Tool: CHRIS-7 Assessment 07812 ([id number]) Assessment & Plan Assessment & Plan (1) Diabetes: Code(s): E11.9 - Type 2 diabetes mellitus without complications Category: Medical Plan: A1c today is 7.1%, slightly above goal of less than 7.0%. Previous A1c was 8.3%. Continue current treatment regimen. ADA diet and routine exercise encouraged. Will recheck A1c in 3 months. Follow-up in 2 months for an extended physical exam and labs review. Return sooner with symptoms or concerns. Verbalized understanding and agreed with the plan. (2) Dyslipidemia: Code(s): E78.5 - Hyperlipidemia, unspecified Category: Medical Plan: Will recheck lipid panel levels and make changes as needed. (3) Laboratory tests ordered as part of a complete physical exam (CPE): Code(s): Z00.00 - Encounter for general adult medical examination without abnormal findings Category: Medical Plan: Fasting labs ordered as part of a complete physical exam. Advised to fast for at least 10 hours before getting labs drawn. May drink water Verbalized understanding and agreed with treatment plan. Orders: Orders Lipid Panel Today E78.5 - Hyperlipidemia, unspecified AMB Hemoglobin A1c Today E11.9 - Type 2 diabetes mellitus without complications Complete Blood Count Auto Diff 2 Months Z00.00 - Encounter for general adult medical examination without abnormal findings Comprehensive [place]. Panel Fast 2 Months Z00.00 - Encounter for general adult medical examination without abnormal findings Microalbumin, Random (w Creat) 2 Months Z00.00 - Encounter for general adult medical examination without abnormal findings TSH reflex Free T4 2 Months Z00.00 - Encounter for general adult medical examination without abnormal findings UA CC w/rflx Micro + Cult 2 Months Z00.00 - Encounter for general adult medical examination without abnormal findings Vitamin D 25-OH Total 2 Months Z00.00 - Encounter for general adult medical examination without abnormal findings
[2025-02-09 12:56] VITALS: BP 126/82; PULSE 80; TEMP 37; O2SAT 96; BMI 37.1
--- OUTSIDE RECORDS SUMMARY | 2025-02-09 14:38 | XMS_ITS | Clinical Summary ---
Author Organization [facility] Address [facility] [place] [address] Care Team Providers Care Computer Graphic Designer Name Role Phone Liu Hilton MD Primary Care Provider Dolly ilable Allergies No known active allergies Medications Medication Sig Dispensed Refills Start Date End Date Status atorvastatin (LIPITOR) 10 MG tablet Take 1 Tab by mouth at bedtime. 30 Tab 5 12/29/2018 Active metformin (GLUCOPHAGE) 500 MG tabletIndications:Ty pe 2 diabetes mellitus with microalbuminuria, without long-term current use of insulin (HCC) Take 2 Tabs by mouth 2 times daily (with meals). For 1 week take 2 tab in morning, 1 tab at night. If tolerating, after 1 week take 2 tab twice a day. 120 Tab 2 12/29/2018 Active lisinopril (PRINIVIL,ZESTRIL) 2.5 MG tabletIndications:Un controlled type 2 diabetes mellitus with microalbuminuria, without long-term current use of insulin Take 1 Tab by mouth daily. 30 Tab 0 04/20/2019 Active ALBUTEROL SULFATE (PROAIR HFA) 108 (90 Base) MCG/ACT Aero Soln Inhale 2 Puffs into the lungs every 4 hours as needed for Cough, Wheezing or Shortness of Breath. 1 Inhaler 0 07/09/2020 Active Active Problems Problem Noted Date BMI 40.0-44.9, adult 12/28/2018 Hyperlipidemia 12/28/2018 DM type 2, uncontrolled, with renal comp lications 12/20/2017 Mild intermittent asthma Low testosterone Resolved Problems Problem Noted Date Resolved Date Obesity (BMI 30-39.9) 12/09/2017 12/28/2018 Immunizations Name Administration Dates Next Due TD (STATE SUPPLIED FOR ADULTS AND CHILDREN) 10/08 Family History Medical History Relation Name Comments Cataract Mother Blindness Negative Hx Glaucoma Negative Hx Macular Degeneration Negative Hx Strabismus Negative Hx Relation Name Status Comments Brother 1 Alive Brother 2 Alive Brother 3 Alive Father Alive type 1 diabetes , hypercholesterolemia Maternal Grandfather unknown Maternal Grandmother (Age 80s) u nknown Mother Alive type 2 diabetes , breast cancer over age 45 Paternal Grandfather unknown Paternal Grandmother (Age 100) o ld age Son Alive Social History Tobacco Use Types Packs/Day Years Used Date Smoking Tobacco: Never Smokeless Tobacco: Never Alcohol Use Standard Drinks/Week Comments Yes 0 (1 standard drink = 0.6 oz pur e alcohol) special occasions Sex Assigned at Date Recorded Not on file Last Filed Vital Signs Vital Sign Reading Time Taken Comments Blood Pressure 124/80 12/28/2018 4:08 PM EST Pulse 76 12/28/2018 4:08 PM EST Temperature 36.8 ??C (98.3 ??F) 12/28/2018 4:08 PM ES T Respiratory Rate 16 12/28/2018 4:08 PM EST Oxygen Saturation - - Inhaled Oxygen Concentration - - Weight 105.7 kg (233 lb) 12/28/2018 4:08 PM EST Height 161.9 cm (5' 3.75 ) 01/25/2018 8:54 AM ED T Body Mass Index 40.31 01/25/2018 8:54 AM EDT Plan of Treatment Health Maintenance Due Date Last Done Comments Covid-19 Vaccine (#1) 01/07/1979 DIABETES: ANNUAL FOOT EXAM 1996 PNEUMOCOCCAL VACCINE FOR HIG H RISK PATIENTS (#1) 1997 DTAP/TDAP/TD (1 - Tdap) 10/23/2012 10/22/2012 DIABETES: ANNUAL EYE EXAM 03/11/2019 03/11/2018 DIABETES: BLOOD SUGAR CONTRO L TEST (HGBA1C) 03/27/2019 12/28/2018, 12/20/2017 BASELINE HEALTH EXAM 40-64 12/09/2019 12/09/2017, DIABETES/HEART DISEASE: JABARI AL CHOLESTEROL (LDL) 12/28/2019 12/28/2018, 12/09/2017 DIABETES: ANNUAL URINE PROTE IN TEST (MICROALBUMIN) 12/28/2019 12/28/2018, 12/20/2017 BMI CHECK/ADVISE 11/08/2024 12/28/2018, , 12/09/2017 INFLUENZA (Season Ended) 2025 Care Teams Computer Graphic Designer Relationship Specialty Start Date End Date Liu Hilton MD PCP - General Internal Medicine 11/26/17
--- OUTSIDE RECORDS SUMMARY | 2025-02-09 14:39 | XMS_ITS | Clinical Summary ---
Author Organization [facility] Address [address] [place] [address] Care Team Providers Care Form Maker Name Role Phone Iker Longoria Primary Care Provider Unavailabl e Medications Lisinopril (PRINIVIL,ZESTRI L) 30 MG tablet 0 04/11/2019 Act bladimir Albuterol (ProAir HFA) 90 mcg/ACT inhaler 0 04/11/2019 Act bladimir metFORMIN HCl 625 MG Tab 0 04/11/2019 Active Amoxicillin (AMOXIL) 875 MG tablet 0 04/11/2019 Active Naproxen (NAPROSYN) 500 MG tablet 0 04/11/2019 Active Naproxen Sodium (Aleve) 220 MG tablet 0 04/11/2019 Active Cetirizine-Pseud oephedrine (Allergy Rel D12, Cetirizine,) 5-120 MG per 12 hr tablet 0 04/11/2019 Active predniSONE (DELTASONE) 10 MG tablet Take 4 tabls daily X 2 days, Take 3 tabs dailyX 2 days, Take 2 tabs daily X's 2 days, Take 1 tab daily X's 1 day then stop 20 0 04/11/2019 Active Active Problems Problem Noted Date Diagnosed Date Asthma 04/11/2019 Diabetes mellitus 04/11/2019 Chronic sinusitis 04/11/2019 Family History Medical History Relation Name Comments Allergies (med/food/envrnmt) Other allergies : Family History Cancer (?Type) Other malignant olga lidia plasm : Family History Diabetes Other diabetes mellit us : Family History Hearing Loss Other deafness or hea ring loss : Family History Hypertension Other hypertension : Family History Relation Name Status Comments Other Social History Tobacco Use Types Packs/Day Years Used Date Smoking Tobacco: Never Assessed Comments:Smoking Status:Elizabeth crawford smoker Sex and Gender Information Value Date Recorded Sex Assigned at Not on file Legal Sex Male 11:07 AM EDT Gender Identity Not on file Sexual Orientation Not on file Plan of Treatment Health Maintenance Due Date Last Done Comments Hepatitis C Screening 1978 DTaP/Tdap/Td (1 - Tdap) 1996 Eye/Retina Exam 1996 GFR 1996 LDL Cholesterol 1996 Microalbumin 1996 Hep B (1 of 3 - 19+ 3-dose series) 1997 COVID-19 Vaccine (2023-2 5 season) 2024 Influenza (#1) 2024 Zoster (Shingrix) (1 of 2) 2028 HPV Vaccine Aged Out No longer eligi ble based on patient's age to complete this topic Hep A Aged Out No longer eligi ble based on patient's age to complete this topic Hib Aged Out No longer eligi ble based on patient's age to complete this topic Meningococcal ACWY Aged Out No longer eligible based on patient's age to complete this topic Pneumococcal Aged Out No longer eligi ble based on patient's age to complete this topic Care Teams Form Maker Relationship Specialty Start Date End Date Iker Longoria PCP - General 06/14/23
--- OUTSIDE RECORDS SUMMARY | 2025-02-09 14:39 | XMS_ITS | Encounter Summary ---
Author Organization [facility] Address [address] [place] [address] Care Team Providers Care Construction Contractor Name Role Phone Liu Hilton MD Primary Care Provider Unava ilable Reason for Visit * Reason Comments E-prescribe Rx Request Encounter Details Date Type Department Care Team Description 04/19/2019 Refill Medicine/Pediatrics - [address] [phone] Harish Baker PA-C E-prescribe Rx Request Social History Tobacco Use Types Packs/Day Years Used Date Smoking Tobacco: Never Smokeless Tobacco: Never Alcohol Use Standard Drinks/Week Comments Yes 0 (1 standard drink = 0.6 oz pur e alcohol) special occasions Sex Assigned at Date Recorded Not on file documented as of this encounter Miscellaneous Notes * Telephone Encounter - Shahnaz Javier M.A. - 04/20/2019 1:39 PM EDT RX sent electronically * Telephone Encounter - Celestina Mcgowan M.A. - 04/20/2019 8:51 AM EDT Last ov 12/28/18. Pt due for DM follow up. Called home # and left message for pt to call. RX pendedwith no refill and notation to pharmacy. BP Readings from Last 5 Encounters: 12/28/18 124/80 01/25/18 120/78 12/20/17 118/72 12/09/17 120/80 Lab Results Component Value Date NA 133 12/28/2018 K 4.1 12/28/2018 CO2 27 12/28/2018 CL 97 12/28/2018 BUN 17 12/28/2018 CREAT 0.75 12/28/2018 GLU 319 12/28/2018 CA 9.0 12/28/2018 GFR > 60 12/28/2018 * Telephone Encounter - Tri Andrade - 04/20/2019 8:14 AM EDT Patient would like script to be: E-PRESCRIBED/FAXED TO PHARMACY WHEN WAS THE PATIENT'S LAST APPOINTMENT IN ADULT MEDICINE? 12/28/18 WHEN WAS THE LAST TIME THE PATIENT SAW THEIR PCP? 01/25/18 Does patient have an upcoming appointment? (THE MEDICATION REQUESTED IS ON THE MED LIST ABOVE) All of the medications requested were on the CURRENT MEDS list Did you check the Pharmacy information above?: YES Patient wants: 30 -day supply Is this a mail order prescription request ? NO If the refill is from a FAXED refill request what is the RX # listed on the fax? N/A Patients current insurance carrier is: Payor: ERYN/PPO POS / Plan: PPO $20 [employer] [id number] / ProductType: PPO [id number] documented in this encounter Plan of Treatment Not on file documented as of this encounter Visit Diagnoses Diagnosis Uncontrolled type 2 diabetes mellitus with microalbuminuria, without long-term current use of insulin documented in this encounter Care Teams Construction Contractor Relationship Specialty Start Date End Date Liu Hilton MD PCP - General Internal Medicine 11/26/17 documented as of this encounter
--- OUTSIDE RECORDS SUMMARY | 2025-02-09 14:39 | XMS_ITS | Encounter Summary ---
Author Organization [facility] Address [address] [place] [address] Care Team Providers Care Drone Operator Name Role Phone Liu Hilton MD Primary Care Provider Unava ilable Reason for Visit * Reason Comments E-prescribe Rx Request Encounter Details Date Type Department Care Team Description 11/14/2018 Refill Medicine/Pediatrics - [address] [phone] Liu Hilton MD E-prescribe Rx Request Social History Tobacco Use Types Packs/Day Years Used Date Smoking Tobacco: Never Smokeless Tobacco: Never Alcohol Use Standard Drinks/Week Comments Yes 0 (1 standard drink = 0.6 oz pur e alcohol) special occasions Sex Assigned at Date Recorded Not on file documented as of this encounter Miscellaneous Notes * Telephone Encounter - Liu Hilton MD - 11/14/2018 9:08 AM EST No refills, patient needs f/u appt with labs a couple days priro to appt, was supposed to f/u months ago * Telephone Encounter - Leanna Ramirez R.N. - 11/14/2018 8:37 AM EST Last ov:01/25/18 Last ov:01/25/18 BP Readings from Last 5 Encounters: 01/25/18 120/78 12/20/17 118/72 12/09/17 120/80 pended * Telephone Encounter - Tri Herndon 11/14/2018 7:35 AM EST Patient would like script to be: E-PRESCRIBED/FAXED TO PHARMACY WHEN WAS THE PATIENT'S LAST APPOINTMENT IN ADULT MEDICINE? 01/25/18 WHEN WAS THE LAST TIME THE PATIENT SAW THEIR PCP? Same as above Does patient have an upcoming appointment? [facility] to refill request. Appt due (THE MEDICATION REQUESTED IS ON THE MED [...] is: Payor: ERYN/PPO POS / Plan: PPO $0 [employer] [id number] / Product Type: PPO [id number] documented in this encounter Plan of Treatment Not on file documented as of this encounter Visit Diagnoses Diagnosis Uncontrolled type 2 diabetes mellitus with microalbuminuria, without long-term current use of insulin documented in this encounter Care Teams Drone Operator Relationship Specialty Start Date End Date Liu Hilton MD PCP - General Internal Medicine 11/26/17 documented as of this encounter
--- OUTSIDE RECORDS SUMMARY | 2025-02-09 14:39 | XMS_ITS | Clinical Summary ---
Author Organization [facility] Address [address] [place] [address] Care Team Providers Care Collective Bargaining Specialist Name Role Phone Unavailable Primary Care Provider Unavailabl e Allergies No known active allergies Medications Medication Sig Dispensed Refills Start Date End Date Status albuterol (PROAIR HFA) 108 (90 BASE) MCG/ACT inhaler ProAir HFA 108 (90 Base) MCG/ACT Inhalation Aerosol Solution inhale 1 to 2 puffs every 4 to 6 hours if needed ; Start Date: 08/06/2010; End Date: 08/06/2010 Active metFORMIN (GLUCOPHAGE) 500 MG tabletIndications:Ty pe 2 diabetes mellitus without complication (HCC) Take 1 tablet (500 mg total) by mouth every morning with breakfast. 30 tablet 1 09/11/2015 Active cefdinir (OMNICEF) 300 MG capsuleIndications:S ubacute frontal sinusitis Take 1 capsule (300 mg total) by mouth 2 (two) times a day. 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 Resolved Problems Problem Noted Date Diagnosed Date Resolved Date Pharyngitis 08/21/2015 08/21/2015 URI (upper respiratory infection) 08/21/2015 01/20/2024 Allergic rhinitis 06/13/2014 08/21/2015 Asthma 06/13/2014 08/21/2015 Family History Medical History Relation Name Comments Diabetes Father Breast cancer Mother Relation Name Status Comments Father Alive Mother Alive Social History Tobacco Use Types Packs/Day Years Used Date Smoking Tobacco: Never Smokeless Tobacco: Never Alcohol Use Standard Drinks/Week Comments Yes 0 (1 standard drink = 0.6 oz pur e alcohol) moderation Sex and Gender Information Value Date Recorded Sex Assigned at Not on file Gender Identity Not on file Sexual Orientation Not on file Last Filed Vital Signs Vital Sign Reading Time Taken Comments Blood Pressure 134/90 06/02/2017 9:07 AM EDT Pulse 70 06/02/2017 9:07 AM EDT Temperature 36.3 ??C (97.3 ??F) 06/02/2017 9:07 AM ED T Respiratory Rate 16 06/02/2017 9:07 AM EDT Oxygen Saturation - - Inhaled Oxygen Concentration - - Weight 107 kg (235 lb 12.8 oz) 06/02/2017 9:07 A M EDT Height 162.6 cm (5' 4 ) 06/02/2017 9:07 AM EDT Body Mass Index 40.47 06/02/2017 9:07 AM EDT Plan of Treatment Health Maintenance Due Date Last Done Comments Hepatitis C Virus Screening 1978 Foot Exam 1988 Lipid Panel 1988 Ophthalmology Exam 1988 HIV Screening 1991 Microalbumin/Creatinine Ratio Urine 1996 DTaP/Tdap/Td Vaccines (1 - Tdap) 1997 Hepatitis B Vaccines (1 of 3 - 19+ 3-dose series) 1997 Pneumococcal Vaccine: Pediat raphael (0-5 Years) and At-Risk Patients (6 to 49 Years) (1 of 2 - PCV) 1997 Hemoglobin A1C 11/16/2015 05/16/2015 Creatinine with GFR 09/26/2016 09/26/2015, 5 Colonoscopy 2023 Influenza Vaccine 06/08/2024 COVID-19 Vaccine ( - 2023- season) 2024 Procedures Procedure Name Priority Date/Time Associated Diagnosis Comments COMPREHENSIVE METABOLIC PANEL Routine 09/26/2015 8:25 AM EST Type 2 diabetes mellitus without complication (HCC) HEMOGLOBIN A1C Routine 05/16/2015 9:56 AM EDT from Last 3 Months or Most Recently Relevant to Health Maintenance Results * (ABNORMAL) Comprehensive Metabolic Panel (09/26/2015 8:25 AM EST) Glucose 308(H) 65 - 99 mg/dL CLP Comment:Fasting: <100 mg/dL, Non-Fasting: <200 mg/dL (ADA 2005) Blood Urea Nitrogen (BUN) 11 8 - 21 mg/dL CLP Creatinine 0.6 0.5 - 1.3 mg/dL CLP eGFR >130 >59 CLP Comment:MDRD in mL/min/1.73 sq meters. For Americans, multiply by 1.21. BUN/Creatinine Ratio 18 10.0 - 25.0 Ratio CLP Sodium 138 136 - 145 mmol/L CLP Potassium 4.6 3.4 - 5.3 mmol/L CLP Chloride 96(L) 98 - 107 mmol/L CLP CO2 30 22 - 33 mmol/L CLP Calcium 9.7 8.7 - 10.5 mg/dL CLP Alkaline Phosphatase 48 45 - 128 U/L CLP Aspartate Aminotrans (AST) 36 10 - 55 U/L CLP Alanine Aminotrans (ALT) 69(H) 10 - 55 U/L CLP Bilirubin, Total 1.4(H) 0.2 - 1.0 mg/dL CLP Protein, Total 7.3 6.3 - 8.3 g/dL CLP Albumin 4.8 3.5 - 5.0 g/dL CLP Globulin 2.5 1.5 - 3.9 g/dL CLP Albumin/Globulin Ratio 1.9 1.0 - 3.0 Ratio CLP Comment:Test Performed at: [facility]^CLINICAL LABORATORY [facility]#:[id number] Blood specimen (specimen) Blood specimen / Unknown 09/26/2015 8:25 AM EST 09/26/2015 2:55 PM EST Candido Green MD LAB BLOOD ORDERABLE S CLP * (ABNORMAL) Hemoglobin A1c (05/16/2015 9:56 AM EDT) Hemoglobin A1C 11.9(H) <5.7 % ALLSC RIPTS CONVERSION Comment: A1C% ? INTERPRETATION 5.7 - 6.0 ?INCREASE RISK OF DIABETES 6.1 - 6.4 ?HIGHER RISK OF DIABETES > OR = 6.5 ?? CONSISTENT WITH DIABETES ?? DIABETES CARE, 33(SUPP 1):S1-S61, 2010 05/16/2015 9:56 AM EDT Lamar [place] LAB BLOOD ORDERABLES ALLSCRIPTS CONVERSION from Last 3 Months or Most Recently Relevant [place] [address] HalimaWolf Personal/Family Self 1980 [place] [address]
== END 2025-02-09 13:36 | disposition home or self-care (01) ==
LOC: HO.HMCFM 12:47
PROVIDERS: PCP Nurse Practitioner Family; Visit Provider Nurse Practitioner Family
DX: E11.9 Type 2 diabetes mellitus without complications (principal); E78.5 Hyperlipidemia, unspecified; Z00.00 Encounter for general adult medical examination without abnormal findings

== ENCOUNTER 2025-02-09 13:23 | Outpatient (REF) | payer OTHER, SELFPAY ==
--- OUTSIDE RECORDS SUMMARY | 2025-02-09 15:14 | XMS_ITS | Clinical Summary ---
Author Organization [facility] Address [facility] [place] [address] Care Team Providers Care Developmental Psychologist Name Role Phone Liu Hilton MD Primary [...] 12/09/2017 INFLUENZA (Season Ended) 2025 Care Teams Developmental Psychologist Relationship Specialty Start Date End Date Liu Hilton MD PCP - General Internal Medicine 11/26/17
--- OUTSIDE RECORDS SUMMARY | 2025-02-09 15:15 | XMS_ITS | Clinical Summary ---
Author Organization [facility] Address [address] [place] [address] Care Team Providers Care Production Floater Name Role Phone Iker Longoria Primary Care [...] age to complete this topic Care Teams Production Floater Relationship Specialty Start Date End Date Iker Longoria PCP - General 06/14/23
--- OUTSIDE RECORDS SUMMARY | 2025-02-09 15:15 | XMS_ITS | Encounter Summary ---
Author Organization [facility] Address [address] [place] [address] Care Team Providers Care Machine Repairman Name Role Phone Liu Hilton MD Primary Care Provider Unava ilable Reason for Visit * Reason Comments E-prescribe Rx Request Encounter Details Date Type Department Care Team Description 11/14/2018 Refill Medicine/Pediatrics - [address] [phone] Liu Hilton MD E-prescribe Rx Request Social [...] an upcoming appointment? [facility] to [...] Payor: ERYN/PPO POS / Plan: PPO $0 [employer] [id number] / Product Type: PPO [id number] documented in this encounter Plan of Treatment Not on file documented as of this encounter Visit Diagnoses Diagnosis Uncontrolled type 2 diabetes mellitus with microalbuminuria, without long-term current use of insulin documented in this encounter Care Teams Machine Repairman Relationship Specialty Start Date End Date Liu Hilton MD PCP - General Internal Medicine 11/26/17 documented as of this encounter
--- OUTSIDE RECORDS SUMMARY | 2025-02-09 15:15 | XMS_ITS | Encounter Summary ---
Author Organization [facility] Address [address] [place] [address] Care Team Providers Care Oven Technician Name Role Phone Liu Hilton MD Primary Care Provider Unava ilable Reason for Visit * Reason Onset Date Comments Faxed Refill 07/08/2020 Encounter Details Date Type Department Care Team Description 07/08/2020 Refill Medicine/Pediatrics - [address] [phone] Liu Hilton MD Faxed Refill Social History Tobacco Use Types Packs/Day Years Used Date Smoking Tobacco: Never Smokeless Tobacco: Never Alcohol Use Standard Drinks/Week Comments Yes 0 (1 standard drink = 0.6 oz pur e alcohol) special occasions Sex Assigned at Date Recorded Not on file documented as of this encounter Miscellaneous Notes * Telephone Encounter - Tri Zafar - 07/09/2020 3:19 PM EDT Lm on to schedule * Telephone Encounter - Manuel Delcid - 07/09/2020 10:28 AM EDT Prescription has been electronically faxed to the pharmacy. * Telephone Encounter - Liu Hilton MD - 07/09/2020 10:08 AM EDT Script sent with no refills, patient needs f/u appt, thanks * Telephone Encounter - Rosemary Golden M.A. - 07/09/2020 10:04 AM EDT Last OV 12/28/19 * Telephone Encounter - Evelia Graham - 07/08/2020 3:29 PM EDT Patient would like script to be: E-PRESCRIBED/FAXED TO PHARMACY WHEN WAS THE PATIENT'S LAST APPOINTMENT IN ADULT MEDICINE? 12/28/2019 WHEN WAS THE LAST TIME THE PATIENT SAW THEIR PCP? 01/25/18 Does patient have an upcoming appointment? No-unable to reach left [facility] to call for appointment due to refill [...] N/A Patients current insurance carrier is: [place]or[place] / Plan: PPO $20 [employer] [id number] / ProductType: PPO [id number] documented in this encounter Plan of Treatment Not on file documented as of this encounter Visit Diagnoses Not on filedocumented in this encounter Care Teams Oven Technician Relationship Specialty Start Date End Date Liu Hilton MD PCP - General Internal Medicine 11/26/17 documented as of this encounter
--- OUTSIDE RECORDS SUMMARY | 2025-02-09 15:15 | XMS_ITS | Clinical Summary ---
Author Organization [facility] Address [address] [place] [address] Care Team Providers Care Clinical Application Consultant Name Role Phone Unavailable Primary Care Provider [...] - 3.0 Ratio CLP Comment:Test Performed at: [facility]^CLINICAL LABORATORY [employer] [facility]#:[id number] Blood specimen (specimen) Blood specimen / [...] Relevant to [place] [address] HalimaWolf Personal/Family Self 1980 [place] [address]
--- OUTSIDE RECORDS SUMMARY | 2025-02-09 15:15 | XMS_ITS | Encounter Summary ---
Author Organization [facility] Address [address] [place] [address] Care Team Providers Care Licensed Guide Name Role Phone Liu Hilton MD Primary Care Provider Unava ilable Encounter Details Date Type Department Care Team Description 03/11/2018 Telephone Eye Services-[address] [address] Benton Shahid, ELVIA Social History Tobacco Use Types Packs/Day Years Used Date Smoking Tobacco: Never Smokeless Tobacco: Never Alcohol Use Standard Drinks/Week Comments Yes 0 (1 standard drink = 0.6 oz pur e alcohol) special occasions Sex Assigned at Date Recorded Not on file documented as of this encounter Miscellaneous Notes * Telephone Encounter - Benton Shahid OD - 03/11/2018 2:11 PM EDT Please check appointment and notify by mail and phone documented in this encounter Plan of Treatment Not on file documented as of this encounter Visit Diagnoses Not on filedocumented in this encounter Care Teams Licensed Guide Relationship Specialty Start Date End Date Liu Hilton MD PCP - General Internal Medicine 11/26/17 documented as of this encounter
[2025-02-09 17:39] LABS: MANUAL DIFF FLAG NO
[2025-02-09 17:51] LABS: Appearance Urine Clear; Color Urine Yellow; Glucose Urine UA Negative (Negative); Leukocyte Esterase Urine Negative (Negative); Nitrite Urine Negative (Negative); PH 6.5 (5.0-9.0); Specific Gravity - Urine 1.025 (1.005-1.025); Urine Blood Negative (Negative); Urine Ketones Trace mg/dL (Negative); Urine Protein Trace mg/dL (Neg-Trace)
[2025-02-09 17:54] LABS: Basophils Percent Auto 0.1 % (0-2); Eosinophils Absolute Auto 0.3 X10*3/uL (0.0-0.4); Eosinophils Percent Auto 4.1 % (0-4); Hematocrit 40.3 % (42.0-52.0); Hemoglobin 12.8 g/dl (14.0-18.0); Imm Gran Abs Auto 0.04 X10*3/uL (0.00-0.03); Imm Gran Pct Auto 0.6 % (0.0-0.4); Lymphocytes Absolute Auto 2.8 X10*3/uL (1.2-4.9); Lymphocytes Percent Auto 38.9 % (20-40); Mean Corpuscular HGB Conc 31.8 g/dl (31.0-36.0); Mean Corpuscular Hemoglobin 19.8 pg (27.0-33.0); Mean Platelet Volume 9.3 fL (9.4-12.4); Monocytes Absolute Auto 0.6 X10*3/uL (0.1-1.2); Monocytes Percent Auto 8.8 % (2-11); Neutrophils Absolute Auto 3.4 x10*3/uL (2.0-8.3); Neutrophils Percent Auto 47.5 % (45-73); Platelet Count 320 X10*3/uL (160-400); Red Blood Count 6.46 X10*6/uL (4.60-5.80); Red Cell Distribution Width 18.9 % (11.0-16.0); White Blood Count 7.2 X10*3/uL (4.8-10.8)
[2025-02-09 18:20] LABS: Alanine Aminotransferase 79 U/L (0-40); Albumin Level 4.6 g/dL (3.5-5.0); Alkaline Phosphatase 41 U/L (39-117); Anion Gap 13 (12-20); Aspartate Amino Transferase 32 U/L (5-37); Bilirubin Total 1.1 mg/dL (0.0-1.0); Blood Urea Nitrogen 23 mg/dL (9-16); Calcium 9.6 mg/dL (8.4-10.2); Carbon Dioxide 24 mmol/L (22-29); Chloride 107 mmol/L (96-108); Cholesterol 154 mg/dL (<200); Estimated Glomerular Filt Rate > 60; Glucose Fasting 151 mg/dL (60-99); HDL Cholesterol 31 mg/dL (>40); Potassium 4.2 mmol/L (3.3-5.1); Sodium 140 mmol/L (135-145); Total Protein 7.5 g/dL (6.5-8.0); Triglycerides 512 mg/dL (<150)
[2025-02-09 18:21] LABS: Creatinine Urine 116.12 mg/dL; Microalbum/Creatinine Ratio Ur 49.9 ug/mg cr (<30)
[2025-02-09 18:35] LABS: TSH reflex Free T4 1.74 uIU/mL (0.32-4.0); Vitamin D 25-OH Total 133.6 ng/mL (>30)
[2025-02-09 20:10] LABS: Mean Corpuscular Volume 62.4 fL (80.0-98.0)
== END 2025-02-09 13:24 | disposition home or self-care (01) ==
LOC: HO.WFDLDS 13:23
PROVIDERS: Visit Provider Nurse Practitioner Family
DX: Z00.00 Encounter for general adult medical examination without abnormal findings (principal); E78.5 Hyperlipidemia, unspecified; E11.9 Type 2 diabetes mellitus without complications
CPT/HCPCS: 36415; 80053; 80061; 81003; 82043; 82306; 82570; 83036; 84443; 85025; 96127

== ENCOUNTER 2025-05-18 09:25 | Outpatient (AMB) | payer OTHER, SELFPAY ==
--- NOTE | 2025-05-18 09:32 | MHC.PC.OV ---
Vital Signs 05/18/25 09:38 Height 5 ft 4 in Weight 216 lb 8 oz BMI 37.2 BP 131/76 Blood Pressure Location Rt brachial Position Sitting Respiration 16 Pulse 81 Pulse Source Pulse Oximeter Temp 98.5 F Temp Source Oral Pulse Oximetry (%) 98 Oxygen Delivery Method Room Air Intake Visit Reasons: 2 mos CPE Intake Note: patient here for CPE Archaeology Professor Required: No Allergies No Known Allergies Allergy (Verified 05/18/25 09:49) Medication List - Last Reconciled 05/18/25 by Roz Sharma CNP cholecalciferol (vitamin D3) 125 mcg PO DAILY metformin 1,000 mg PO BIDWMEAL 30 days Tobacco use date assessed: 05/18/25 Dental Screening Dental Screen Date: 05/18/25 Did you have a dental visit in the last 12 months?: No Did you have a dental problem in the last 6 months where you did not have access to dental care?: No Was dental information given to patient?: Patient has dentist HPI HPI Comments History of Present Illness Details 44-year-old male presents for an extended physical exam and review of recent lab results. He admits to taking his medications as prescribed without adverse reactions. He notes that he has been making healthy lifestyle changes. He states that his home fasting glucose average between 190-240. Acute issue(s) - None Past Medical History - type 2 diabetes, dyslipidemia, thalassemia, karatoconus of the right eye (wear right contact lens) Social History - Nonsmoker. Does not vape. Drinks 1-2 beers/whisky once monthly. Denies recreational drug use - Has been making healthy dietary choices. Does not exercise regularly. Generally sleep well Health maintenance - Last eye exam was a year ago with [facility] in [place]. Ophthalmology referral made for diabetic retinal exam - Last dental visit was a year and half ago; encouraged to schedule an appointment with his dentist for routine dental care - Last Tdap was in 10/22/2012; Declines Tdap today - Has not been vaccinated for the flu this season; declines vaccination [facility] Medical History Diabetes Surgical History No pertinent past surgical history Family History Mother Diabetes Cancer Father Diabetes Social History Housing: House Alcohol intake: current Patient Tobacco Use Status: Never used Tobacco e-Cigarette/Vaping Use: Never Used Second Hand Smoke Exposure: No service: No Current occupational status: employed 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 1. Little interest or pleasure in doing things: not at all 2. Feeling down, depressed, or hopeless: not at all 3. Trouble falling or staying asleep, or sleeping too much: not at all 4. Feeling tired or having little energy: several days 5. Poor appetite or overeating: not at all 6. Feeling bad about yourself - or that you are a failure or have let yourself or your family down: not at all 7. Trouble concentrating on things, such as reading the newspaper or watching television: not at all 8. Moving or speaking so slowly that other people could have noticed. Or the opposite - being so fidgety or restless that you have been moving around a lot more than usual: not at all 9. Thoughts that you would be better off or of hurting yourself in some way: not at all Total score: 1 Depression Screening Interpretation: Negative Depression Screening Done: Yes 19510 - PHQ-9 Billing: Yes Source: Developed by Drs. Tu Downs, Mariely Salazar, Lui Moseley and colleagues, with an educational alpa from [employer]. Thrive Questionnaire Date Thrive assessed: 02/09/25 I am a: Patient What is your living situation today?: I have a steady place to live Within the past 12 months, did the food you bought not last and you didn't have the money to get more?: Never true Within the past 12 months, did you worry whether your food would run out before you got money to buy more?: Never true Do you have trouble paying for medicines?: No Do you have trouble getting transportation to medical appointments?: No Do you have trouble paying your heating and electricity bill?: No Do you have trouble taking care of your child, family member or friend?: No Do you have trouble with day-to-day activities such as bathing, preparing meals, shopping, managing finances, etc.?: No Are you currently unemployed and looking for a job?: No Are you interested in more education?: No Please select the resources that you would like help with: None Currently or been in a relationship where the following occur: No concerns reported THRIVE Score: 0 AUDIT C Alcohol Use Questionnaire (AUDIT-C) 1. How often do you have a drink containing alcohol?: Monthly or less 2. How many drinks containing alcohol do you have on a typical day when you are drinking?: 1 or 2 3. How often do you have six or more drinks on one occasion?: Less than monthly Total Score: 2 Score Reviewed/Action Taken: Yes CHRIS-7 AMB Questionnaire CHRIS-7 Date CHRIS - 7 assessed: 05/18/25 Feeling nervous, anxious, or on edge: 0 = Not at all Not being able to stop or control worryin = Not at all Worrying too much about different things: 0 = Not at all Trouble relaxin = Not at all Being so restless that it is hard to sit still: 0 = Not at all Becoming easily annoyed or irritable: 1 = Several days Feeling afraid as if something awful might happen: 0 = Not at all Total CHRIS-7 score (0-4 normal; 5-9 mild; 10-14 moderate; 15-21 severe): 1 Source: Developed by Drs. Tu Downs, Mariely Salazar, Lui Moseley and colleagues, with an educational alpa from [employer]. CHRIS-7 Assessment Billing CHRIS-7 Assessment Tool: CHRIS-7 Assessment 45404 Review of Systems Const Details: Denies chills, Denies fatigue, Denies fever(s), Denies headache(s) and Denies weakness HEENT Denies change in vision, Denies dizziness, Denies headache(s), Denies hearing loss, Denies nasal congestion, Denies sinus pain, Denies sinus pressure and Denies sore throat Card Denies chest pain, Denies lightheadedness, Denies dyspnea and Denies other (palpitations) Resp Denies cough, Denies dyspnea and Denies wheezing GI Denies abdominal pain, Denies melena, Denies hematochezia, Denies change in bowel habits, Denies dyspepsia and Denies nausea Denies hematuria and Denies dysuria Musc Denies abnormal gait, Denies myalgias, Denies arthralgias, Denies numbness and Denies tingling Skin/Breast Denies rash, Denies unusual bruising and Denies wounds Neuro Denies abnormal gait, Denies dizziness, Denies headache(s), Denies memory loss, Denies numbness, Denies Sensory deficit (Neuro), Denies tingling and Denies weakness Psych Denies anxiety, Denies depression and Denies memory loss Endo Denies cold intolerance, Denies fatigue, Denies heat intolerance, Denies polydipsia and Denies polyuria Hesham/Lymph Denies easy bleeding and Denies easy bruising Aller/Immun Denies wheezing Physical exam (Primary Care) Vital Signs: Last Vital Signs Temp 98.5 F 05/18/25 09:38 Pulse 81 05/18/25 09:38 Resp 16 05/18/25 09:38 BP 131/76 05/18/25 09:38 Pulse Ox 98 05/18/25 09:38 Oxygen Delivery Method Room Air 05/18/25 09:38 BMI result Body Mass Index 37.2 Tobacco/Smoking Status: Tobacco use Status Tobacco use date assessed 05/18/25 05/18/25 09:42 Patient Tobacco Use Status Never used Tobacco 05/18/25 09:35 e-Cigarette/Vaping Use Never Used 05/18/25 09:35 PHQ-9: PHQ-9 Score PHQ-9: Total score 1 05/18/25 14:43 Depression Screening Interpretation: Negative Thrive Assessment: Date of Thrive Assessment Date Thrive assessed 02/09/25 05/18/25 09:35 Currently or been in a relationship where the following occur: No concerns reported Const Other: General: no acute distress, well developed, alert and awake Nutritional Appearance: well nourished Orientation/consciousness: patient oriented x3 HENMT Head: Yes normocephalic and Yes atraumatic Ears: hearing grossly normal bilaterally and TM's normal bilaterally General nose exam: Normal external nose present and Normal nares present Mouth: Normal oral and palatal mucosa present and moist mucous membranes Teeth and gingiva: dentition normal Throat: Yes oropharynx normal Eyes Pupils: Equal, round and reactive pupils present and Pupil accommodation reflex normal EOM: EOMs intact bilaterally Neck Neck: Yes normal visual inspection, Yes no lymphadenopathy and Yes trachea midline Thyroid: Thyroid normal Carotids: no bruits Lymphatic: no lymphadenopathy noted Chest Chest palpation & inspection: normal inspection of the chest Resp Effort & Inspection: normal respiratory effort Auscultation: clear to auscultation bilaterally Cardio Rate: regular rate Rhythm: regular rhythm Heart sounds: S1 normal heart sound present, S2 normal heart sound present, no gallops, no murmurs and no rubs Bruits: no abdominal aortic bruits and no carotid bruits GI Palpation (GI): No Abdominal aortic bruit present, Soft to palpation, nontender, No hepatosplenomegaly present and No Rebound tenderness present Auscultation: normal bowel sounds General: Yes no CVA tenderness Back/Spine/Pelvis Back: no CVA tenderness Cervical Spine: cervical ROM normal and No Cervical spine tenderness Thoracic/Lumbar Spine: thoraco-lumbar ROM normal, No pain with thoraco-lumbar ROM, No thoracic spinal tenderness and No lumbar spinal tenderness Skin General: warm and dry. Normal skin color. Normal skin turgor Lesions: no lesions Rashes: no rashes Trauma: no lacerations or abrasions Wounds: no wounds Nails: normal Neuro General: patient oriented x3, gait normal and CN's II-XI intact bilaterally Cranial nerves: Yes Equal, round and reactive pupils present Cognition (Neuro): normal cognition Gait exam (Neuro): Normal gait present Motor exam (neuro): 5/5 motor strength present throughout Sensory Exam: No Sensory deficit (Neuro) Deep tendon reflexes (DTR's): Right patellar reflex intensity grade: 2+ and Left patellar reflex intensity grade: 2+ Extrem General: Yes normal to inspection, No edema and No calf tenderness Psych Appearance: grossly normal Affect: normal affect Attitude: cooperative Thought process: Normal thought process present Results AMB Hemoglobin A1c AMB Hemoglobin A1c 8.0 % Last Edit by Cherie Gottlieb MA on 05/18/25 10:19 Results Reviewed Results Reviewed: Laboratory Last Values Hgb A1c (Clinic) 8.0 % (4.0-6.0) H 05/18/25 10:17 Coding Level of Care Code Est Pt Level 4 (33517) Est Pt Prev Care 40-64y(71253) Diagnoses Normal physical examination, routine Z00.00 Diabetes E11.9 Dyslipidemia E78.5 Thalassemia D56.9 Elevated ALT measurement R74.01 Obesity (BMI 30-39.9) E66.9 Additional Codes CHRIS-7 Assessment Billing - CHRIS-7 Assessment Tool: CHRIS-7 Assessment 98083 ([id number]) PHQ-9 - 19779 - PHQ-9 Billing: Yes ([id number]) Assessment & Plan Assessment & Plan (1) Normal physical examination, routine: Code(s): Z00.00 - Encounter for general adult medical examination without abnormal findings Category: Medical Plan: No significant functional limitations noted. Continue current treatment regimen. Healthy diet and routine exercise encouraged. Follow-up as planned. Verbalized understanding and agreed with treatment plan. (2) Diabetes: Code(s): E11.9 - Type 2 diabetes mellitus without complications Category: Medical Plan: A1c today is 8.0%, above goal of less than 7.0%. Previous A1c was 7.1%. His home fasting glucose average between 190-240. Glipizide 5 mg daily ordered; advised to take as prescribed. Instructed on the risks, benefits, and potential adverse reactions of the medication. ADA diet and routine exercise encouraged. Continue to check fasting and random glucose and reports significantly elevated readings to PCP. Will recheck A1c in 3 months. Referred to Ophthalmology for diabetic eye exam. Verbalized understanding and agreed with the plan. (3) Dyslipidemia: Code(s): E78.5 - Hyperlipidemia, unspecified Category: Medical Plan: Recent triglyceride level is 512, previous level was 192. LDL level is 31. He notes that he was dishonest when he told the senior oracle dba that he was fasting during his last blood draw; he ate a large breakfast, including eggs. His fasting and will be able to repeat lipid panel blood work today. Will recheck lipid panel level and make changes as needed. Advised to limit foods high in saturated fat and avoid foods high in trans fat. Routine exercise encouraged. Verbalized understanding and agreed with the plan. (4) Thalassemia: Code(s): D56.9 - Thalassemia, unspecified Category: Medical Plan: History of microcytic anemia with normal iron studies, folate, and vitamin B12 levels. Referred to hematology/oncology for further workup. (5) Elevated ALT measurement: Code(s): R74.01 - Elevation of levels of liver transaminase levels Category: Medical Plan: Recent ALT level is slightly elevated, 79. Fatty liver disease is likely due to sedentary lifestyle. Healthy diet and routine exercise encouraged. Will recheck liver panel in 3 months. Verbalized understanding and agreed with the plan. (6) Obesity (BMI 30-39.9): Code(s): E66.9 - Obesity, unspecified Category: Medical Plan: He currently weighs 216 lb, BMI is 37.2. Declines referral to tack cutter or weight management at this time. Healthy diet and routine exercise encouraged. Follow-up as needed. Verbalized understanding and agreed with the plan. Orders: Orders Liver Panel Today R74.01 - Elevation of levels of liver transaminase levels AMB Hemoglobin A1c Today Z13.9 - Encounter for screening, unspecified Referrals Ophthalmology Referral E11.9 - Type 2 diabetes mellitus without complications Hematology & Oncology Referral D56.9 - Thalassemia, unspecified Medications: New glipizide 5 mg PO DAILY 30 tabs 3RF 30 days
[2025-05-18 09:38] VITALS: BP 131/76; PULSE 81; RESP 16; TEMP 36.9; O2SAT 98; BMI 37.2
--- OUTSIDE RECORDS SUMMARY | 2025-05-18 09:42 | XMS_ITS | Clinical Summary ---
Author Organization [facility] Address [address] [place] [address] Care Team Providers Care Organic Preparation Analyst Name Role Phone Iker Longoria Primary Care [...] Vaccine (2023-2 5 season) 2024 Influenza (#1) 2025 Zoster (Shingrix) (1 of 2) 2028 HPV [...] age to complete this topic Care Teams Organic Preparation Analyst Relationship Specialty Start Date End Date Iker Longoria PCP - General 06/14/23
--- OUTSIDE RECORDS SUMMARY | 2025-05-18 09:42 | XMS_ITS | Clinical Summary ---
Author Organization [facility] Address [address] [place] [address] Care Team Providers Care Stamping Bench Die Maker Name Role Phone Unavailable Primary Care Provider Unavailabl e Allergies No known active allergies Medications albuterol (PROAIR HFA) 108 (90 BASE) MCG/ACT inhaler ProAir HFA 108 (90 Base) MCG/ACT Inhalation Aerosol Solution inhale 1 to 2 puffs every 4 to 6 hours if needed ; Start Date: 08/06/2010; End Date: 0 Active metFORMIN (GLUCOPHAGE) 500 MG tabletIndications :Type 2 diabetes mellitus without complication (HCC) Take 1 tablet (500 mg total) by mouth every morning with breakfast. 30 tablet 1 5 Active cefdinir (OMNICEF) 300 MG capsuleIndication s:Subacute frontal sinusitis Take 1 capsule (300 mg total) by mouth 2 (two) times a day. 20 capsule 0 6 Active Active Problems Problem Noted Date Diagnosed [...] at Not on file Legal Sex Male 5:58 PM EDT Gender Identity Not on file Sexual Orientation Not on file Last Filed Vital Signs Vital Sign Reading Time Taken Comments Blood Pressure 134/90 06/02/2017 9:07 AM EDT Pulse 70 06/02/2017 9:07 AM EDT Temperature 36.3 C (97.3 F) 06/02/2017 9:07 AM EDT Respiratory Rate 16 06/02/2017 9:07 AM EDT [...] with GFR 09/26/2016 09/26/2015, 5 Colonoscopy 2023 COVID-19 Vaccine (1 - 2023- season) 2024 Influenza Vaccine 06/08/2025 Procedures Procedure Name Priority Date/Time Associated Diagnosis [...] - 3.0 Ratio CLP Comment:Test Performed at: [facility]#:[id number] Blood specimen (specimen) Blood specimen / Unknown 09/26/2015 8:25 AM EST 09/26/2015 2:55 PM EST us Candido Green MD LAB BLOOD ORDERABLES Final Result CLP * (ABNORMAL) Hemoglobin A1c (05/16/2015 9:56 AM EDT) Hemoglobin A1C 11.9(H) <5.7 % [facility] CONVERSION Comment: A1C% INTERPRETATION 5.7 - 6.0 INCREASE RISK OF DIABETES 6.1 - 6.4 HIGHER RISK OF DIABETES > OR = 6.5 CONSISTENT WITH DIABETES DIABETES CARE, 33(SUPP 1):S1-S61, 2009 05/16/2015 9:56 AM EDT us Lamar MA LAB BLOOD ORDERABLES Final R esult [facility] CONVERSION from Last 3 Months or Most Recently Relevant to Health [place] [address] [facility] [place] [address]
== END 2025-05-18 10:11 | disposition home or self-care (01) ==
LOC: HO.HMCFM 09:26
PROVIDERS: PCP Nurse Practitioner Family; Visit Provider Nurse Practitioner Family
DX: Z00.00 Encounter for general adult medical examination without abnormal findings (principal); E11.69 Type 2 diabetes mellitus with other specified complication; E66.9 Obesity, unspecified; Z68.37 Body mass index [BMI] 37.0-37.9, adult; E78.5 Hyperlipidemia, unspecified; D56.9 Thalassemia, unspecified; R74.01 Elevation of levels of liver transaminase levels

== ENCOUNTER → 2025-05-18 09:25 | Outpatient (BNVA) | payer OTHER, SELFPAY | PROVIDERS: PCP Nurse Practitioner Family; Visit Provider Nurse Practitioner Family | DX: Z00.00 Encounter for general adult medical examination without abnormal findings (principal); E11.9 Type 2 diabetes mellitus without complications; E78.5 Hyperlipidemia, unspecified; D56.9 Thalassemia, unspecified; R74.01 Elevation of levels of liver transaminase levels; E66.9 Obesity, unspecified; Z68.37 Body mass index [BMI] 37.0-37.9, adult | CPT/HCPCS: 83036; 96127 ==

== ENCOUNTER 2025-05-18 10:30 | Outpatient (REF) | payer OTHER, SELFPAY ==
[2025-05-18 15:08] LABS: Alanine Aminotransferase 66 U/L (0-40); Albumin Level 4.9 g/dL (3.5-5.0); Alkaline Phosphatase 39 U/L (39-117); Aspartate Amino Transferase 35 U/L (5-37); Cholesterol 170 mg/dL (<200); HDL Cholesterol 38 mg/dL (>40); Total Protein 7.4 g/dL (6.5-8.0); Triglycerides 203 mg/dL (<150)
== END 2025-05-18 10:31 | disposition home or self-care (01) ==
LOC: HO.WFDLDS 10:30
PROVIDERS: Visit Provider Nurse Practitioner Family
DX: R74.01 Elevation of levels of liver transaminase levels (principal); E78.5 Hyperlipidemia, unspecified; Z13.9 Encounter for screening, unspecified
CPT/HCPCS: 36415; 80061; 80076

== ENCOUNTER 2025-06-28 09:20 | Outpatient (AMB) | payer OTHER, SELFPAY ==
--- NOTE | 2025-06-28 09:23 | MHC.PC.OV ---
Vital Signs 06/28/25 09:30 Height 5 ft 4 in Weight 215 lb BMI 36.9 BP 126/74 Blood Pressure Location Rt brachial Position Sitting Respiration 16 Pulse 90 Pulse Source Pulse Oximeter Temp 97.4 F Temp Source Temporal Artery Scan Pulse Oximetry (%) 96 Oxygen Delivery Method Room Air Intake Visit Reasons: Ongoing Strep Throat Intake Note: Wolf presents in the office today for ongoing strep throat. Allergies No Known Allergies Allergy (Verified 06/28/25 09:30) Tobacco use date assessed: 06/28/25 Dental Screening Dental Screen Date: 06/28/25 Did you have a dental visit in the last 12 months?: No Did you have a dental problem in the last 6 months where you did not have access to dental care?: No Was dental information given to patient?: Patient has dentist HPI HPI Comments History of Present Illness Details This is a 44-year-old male with a past medical history of type 2 diabetes presenting for follow up from urgent care. Patient was seen recently at the [facility] urgent care on [facility] in [place] for ear congestion, ear infection and strep throat. The notes are not available at the time of the visit today. The patient provided the history. Patient says at his initial visit the rapid strep was positive. He was placed on Augmentin twice daily, and he feels like it was a shorter course than he expected for the medication, but he does not recall the exact duration. The medication caused diarrhea, but he finished it. He felt better, but the symptoms did not fully resolve. He also started taking an moak-yhd-xldyrug decongestant with aleve for congestion in his right ear. After stopping the antibiotics his throat started hurting worse so he returned to urgent care. Rapid strep was positive again. He was placed on cefdinir 300 mg twice daily for 10 days. Patient reports throat pain resolved. His last dose was this morning. He still has discomfort and pain of the right ear and in front of the ear around the jaw, and his ear feels very congested. No fevers, chills, dizziness, vision changes, headache. Patient recently started glipizide in addition to his metformin due to diabetes. Recent hemoglobin A1c 8%. Reports a history of throat and ear infections since adolescence and childhood which improved as an adult. ROS: Constitutional: No fevers, chills or night sweats Eyes: No vision changes, blurry vision, double vision, eye pain, eye redness, eye discharge. ENT: No hearing loss, sinus pain, postnasal drip or sore throat today Respiratory: No shortness of breath, cough or sputum production. Neurologic: No headache, dizziness, syncope, unilateral weakness, ataxia, numbness or tingling in the extremities. Physical exam: Constitutional: Alert, in no distress. Head: Normocephalic. No visible swelling. No tenderness over the TMJ or mastoid areas bilaterally. Eyes: Pupils are equal, round and reactive to light. Extraocular muscles intact. Ear, Nose and Throat: Canals clear. Left TM mildly erythematous with normal light reflex. Right tympanic membrane mildly erythematous with a dull light reflex. Negative tug test bilaterally. Normal nasal mucosa. No nasal discharge. No swelling, exudates or erythema in the oropharynx. Neck: Supple, Full range of motion. No lymphadenopathy. No palpable masses. Respiratory: Clear to auscultation. Cardiovascular: S1 S2 regular. No murmurs. Neurologic: No focal neurological deficits. Psychiatric: Normal mood and affect [facility] Medical History (Updated 06/28/25 @ 11:57 by FRANCESCA Stephenson) Right otitis media Congestion of right ear Diabetes Surgical History No pertinent past surgical history Family History Mother Diabetes Cancer Father Diabetes Social History (Updated 06/28/25 @ 09:30 by Patricia Simpson MA) Housing: House Alcohol intake: current Patient Tobacco Use Status: Never used Tobacco e-Cigarette/Vaping Use: Never Used Second Hand Smoke Exposure: No Use of substances other than those prescribed or required for medical reasons: No service: No Current occupational status: employed 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 [employer] Current occupational exposures/hazards: No Cognitive needs: No Hearing needs: No Vision needs: No Questionnaire Thrive Questionnaire Date Thrive assessed: 02/09/25 I am a: Patient What is your living situation today?: I have a steady place to live Within the past 12 months, did the food you bought not last and you didn't have the money to get more?: Never true Within the past 12 months, did you worry whether your food would run out before you got money to buy more?: Never true Do you have trouble paying for medicines?: No Do you have trouble getting transportation to medical appointments?: No Do you have trouble paying your heating and electricity bill?: No Do you have trouble taking care of your child, family member or friend?: No Do you have trouble with day-to-day activities such as bathing, preparing meals, shopping, managing finances, etc.?: No Are you currently unemployed and looking for a job?: No Are you interested in more education?: No Please select the resources that you would like help with: None Currently or been in a relationship where the following occur: No concerns reported THRIVE Score: 0 CHRIS-7 AMB Questionnaire CHRIS-7 Date CHRIS - 7 assessed: 05/18/25 Source: Developed by Drs. Tu Downs, Mariely Salazar, Lui Moseley and colleagues, with an educational alpa from [employer]. Physical exam (Primary Care) Vital Signs: Last Vital Signs Temp 97.4 F 06/28/25 09:30 Pulse 90 06/28/25 09:30 Resp 16 06/28/25 09:30 BP 126/74 06/28/25 09:30 Pulse Ox 96 06/28/25 09:30 Oxygen Delivery Method Room Air 06/28/25 09:30 BMI result Body Mass Index 36.9 Tobacco/Smoking Status: Tobacco use Status Tobacco use date assessed 06/28/25 06/28/25 09:34 Patient Tobacco Use Status Never used Tobacco 06/28/25 09:30 e-Cigarette/Vaping Use Never Used 06/28/25 09:30 Thrive Assessment: Date of Thrive Assessment Date Thrive assessed 02/09/25 06/28/25 09:25 Currently or been in a relationship where the following occur: No concerns reported Results AMB Rapid Strep AMB Rapid Strep Negative Last Edit by Patricia Simpson MA on 06/28/25 09:51 Results Reviewed Results Reviewed: Laboratory Last Values Strep Scn Rapid Clinic Negative 06/28/25 09:39 Coding Level of Care Code Est Pt Level 4 (44792) Diagnoses Congestion of right ear H93.8X1 Right otitis media, unspecified otitis media type H66.91 Otitis media type: unspecified History of strep pharyngitis Z87.09 Type II diabetes mellitus E11.9 Diabetes mellitus senior care insulin use: without adjunct faculty for medical terminology use Assessment & Plan Assessment & Plan (1) Congestion of right ear: Code(s): H93.8X1 - Other specified disorders of right ear Category: Medical (2) Right otitis media: Code(s): H66.91 - Otitis media, unspecified, right ear Category: Medical Qualifiers: Otitis media type: unspecified Qualified Code(s): H66.91 - Otitis media, unspecified, right ear (3) History of strep pharyngitis: Code(s): Z87.09 - Personal history of other diseases of the respiratory system (4) Type II diabetes mellitus: Code(s): E11.9 - Type 2 diabetes mellitus without complications Qualifiers: Diabetes mellitus adjunct faculty for medical terminology insulin use: without adjunct faculty for medical terminology use Plan Rapid strep negative. Throat exam is normal today. The patient is improving but still has residual right otitis media and congestion on exam. Extend course of cefdinir by an additional 7 days. He tried over the counter decongestant, but it is not helping. Prescribed a 3 day course of prednisone 40 mg daily. I advised the patient this can cause high blood sugar. He is going to test blood sugars 2-3 times per day while taking this. We reviewed signs and symptoms of hyperglycemia. He will contact the office if his blood sugars over 250. Continue current medications for diabetes. Follow up if symptoms do not resolve or worsen. Warning signs warranting ER evaluation reviewed. Orders: Orders AMB Rapid Strep Screen Today Z13.9 - Encounter for screening, unspecified Medications: New prednisone 40 mg (2 x 20 mg) PO DAILY 3 tabs 0RF cefdinir 300 mg PO BID 14 caps 0RF
[2025-06-28 09:30] VITALS: BP 126/74; PULSE 90; RESP 16; TEMP 36.3; O2SAT 96; BMI 36.9
--- OUTSIDE RECORDS SUMMARY | 2025-06-28 10:27 | XMS_ITS | Clinical Summary ---
Author Organization [facility] Address [address] [place] [address] Care Team Providers Care Family Court Registrar Name Role Phone Iker Longoria Primary Care [...] (Shingrix) (1 of 2) 2028 HPV Vaccine (No Doses Required) Completed Hep A Aged Out No longer eligi ble based on patient's age to complete this topic Hib Aged Out No longer eligi ble based on patient's age to complete this topic Meningococcal ACWY Aged Out No longer eligible based on patient's age to complete this topic Pneumococcal Aged Out No longer eligi ble based on patient's age to complete this topic Care Teams Family Court Registrar Relationship Specialty Start Date End Date Iker Longoria PCP - General 06/14/23
--- OUTSIDE RECORDS SUMMARY | 2025-06-28 10:27 | XMS_ITS | Clinical Summary ---
Author Organization [facility] Address [address] [place] [address] Care Team Providers Care Steamer Gum Candy Name Role Phone Unavailable Primary Care Provider [...] - 3.0 Ratio CLP Comment:Test Performed at: [facility]#:[id number] Blood specimen (specimen) Blood specimen / [...] to Health [place] [address] [facility] [place] [address]
== END 2025-06-28 10:48 | disposition home or self-care (01) ==
LOC: HO.HMCFM 09:21
PROVIDERS: PCP Nurse Practitioner Family; Visit Provider Physician Assistant Medical
DX: H93.8X1 Other specified disorders of right ear (principal); H66.91 Otitis media, unspecified, right ear; Z87.09 Personal history of other diseases of the respiratory system; E11.9 Type 2 diabetes mellitus without complications; Z13.9 Encounter for screening, unspecified

== ENCOUNTER → 2025-06-28 09:20 | Outpatient (BNVA) | payer OTHER, SELFPAY | PROVIDERS: PCP Nurse Practitioner Family; Visit Provider Physician Assistant Medical | DX: H66.91 Otitis media, unspecified, right ear (principal); H93.8X1 Other specified disorders of right ear; E11.9 Type 2 diabetes mellitus without complications; Z87.09 Personal history of other diseases of the respiratory system | CPT/HCPCS: 87880 ==

== ENCOUNTER 2025-08-24 08:20 | Outpatient (AMB) | payer OTHER, SELFPAY ==
--- NOTE | 2025-08-24 08:23 | A.OFFPC_ITS ---
Vital Signs 08/24/25 08:28 08/24/25 08:45 Height 5 ft 4 in Weight 215 lb BMI 36.9 BP 140/72 H 130/80 Blood Pressure Location Rt brachial Rt brachial Position Sitting Sitting Respiration 16 Pulse 82 Pulse Source Pulse Oximeter Temp 98.0 F Temp Source Oral Pulse Oximetry (%) 98 Oxygen Delivery Method Room Air Intake Visit Reasons: 3 mos DM, dyslipidemia Intake Note: patient here for 3 month follow up for DM , dyslipidema Ripening Room Attendant Required: No Allergies No Known Allergies Allergy (Verified 08/24/25 08:40) Medication List - Last Reconciled 08/24/25 by Roz Sharma CNP cholecalciferol (vitamin D3) 125 mcg PO DAILY glipizide 5 mg PO DAILY 30 days metformin 1,000 mg PO BIDWMEAL 30 days Tobacco use date assessed: 08/24/25 Dental Screening Dental Screen Date: 08/24/25 Did you have a dental visit in the last 12 months?: No Did you have a dental problem in the last 6 months where you did not have access to dental care?: No Was dental information given to patient?: Patient has dentist HPI HPI Comments History of Present Illness Details 45-year-old male presents for diabetes a nd dyslipidemia follow-up. He admits to taking his medications as prescribed without adverse reactions. He notes he has been making healthy lifestyle changes. However, he consumes significant amount of cheese and whole milk. He notes persistent pins and needle sensation to his to his right 1st, 2nd, and 3rd digits in the past 3 weeks. He notes that several months ago, while working on a truck, he fell off and landed with his right shoulder on the ground. Shoulder pain has significantly improved. 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 [employer] Current occupational exposures/hazards: No Cognitive needs: No Hearing needs: No Vision needs: No Questionnaire Thrive Questionnaire Date Thrive assessed: 02/09/25 I am a: Patient What is your living situation today?: I have a steady place to live Within the past 12 months, did the food you bought not last and you didn't have the money to get more?: Never true Within the past 12 months, did you worry whether your food would run out before you got money to buy more?: Never true Do you have trouble paying for medicines?: No Do you have trouble getting transportation to medical appointments?: No Do you have trouble paying your heating and electricity bill?: No Do you have trouble taking care of your child, family member or friend?: No Do you have trouble with day-to-day activities such as bathing, preparing meals, shopping, managing finances, etc.?: No Are you currently unemployed and looking for a job?: No Are you interested in more education?: No Please select the resources that you would like help with: None Currently or been in a relationship where the following occur: No concerns reported THRIVE Score: 0 CHRIS-7 AMB Questionnaire CHRIS-7 Date CHRIS - 7 assessed: 05/18/25 Source: Developed by Drs. Tu Downs, Mariely Salazar, Lui Moseley and colleagues, with an educational alpa from [employer]. Review of Systems Const Details: Const Denies chills, Denies fatigue, Denies fever(s), Denies headache(s) and Denies weakness ENT Denies dizziness and Denies headache(s) Card Denies chest pain, Denies lightheadedness, Denies dyspnea and Denies other (Palpitations) Resp Denies cough, Denies dyspnea, Denies wheezing and Denies other ( shortness of breath) GI Denies abdominal pain, Denies melena, Denies hematochezia, Denies change in bow el habits, Denies dyspepsia and Denies nausea Denies hematuria and Denies dysuria Musc Reports as per HPI Skin/Breast Denies rash, Denies unusual bruising and Denies wounds Neuro Denies abnormal gait, Denies dizziness, Denies headache(s), Denies memory loss, Denies Sensory deficit (Neuro), Denies weakness Psych Denies anxiety, Denies depression, Denies memory loss Endo Denies cold intolerance, Denies fatigue, Denies heat intolerance, Denies po lydipsia and Denies polyuria Aller/Immun Denies wheezing Physical exam (Primary Care) Vital Signs: Last Vital Signs Temp 98.0 F 08/24/25 08:28 Pulse 82 08/24/25 08:28 Resp 16 08/24/25 08:28 BP 140/72 H 08/24/25 08:28 Pulse Ox 98 08/24/25 08:28 Oxygen Delivery Method Room Air 08/24/25 08:28 BMI result Body Mass Index 36.9 Tobacco/Smoking Status: Tobacco use Status Tobacco use date assessed 08/24/25 08/24/25 08:33 Patient Tobacco Use Status Never used Tobacco 08/24/25 08:26 e-Cigarette/Vaping Use Never Used 08/24/25 08:26 Thrive Assessment: Date of Thrive Assessment Date Thrive assessed 02/09/25 08/24/25 08:26 Currently or been in a relationship where the following occur: No concerns reported Const Other: General: no acute distress and well developed Nutritional Appearance: well nourished Orientation/consciousness: patient oriented x3 HENMT Head: Yes normocephalic and Yes atraumatic Eyes General: appearance normal, both eyes and all related structures Pupils: Equal, round and reactive pupils present EOM: EOMs intact bilaterally Resp Effort & Inspection: normal respiratory effort Auscultation: clear to auscultation bilaterally Cardio Rate: regular rate Rhythm: regular rhythm Heart sounds: S1 normal heart sound present, S2 normal heart sound present, no gallops, no murmurs and no rubs GI Palpation (GI): No Abdominal aortic bruit present, Soft to palpation, nontender, No hepatosplenomegaly present and No Rebound tenderness present Auscultation: normal bowel sounds General: Yes no CVA tenderness Back/Spine/Pelvis Back: no CVA tenderness Cervical Spine: cervical ROM normal and No Cervical spine tenderness Thoracic/Lumbar Spine: thoraco-lumbar ROM normal, No pain with thoraco-lumbar ROM, No thoracic spinal tenderness and No lumbar spinal tenderness Extrem General: Yes normal to inspection, No edema and No calf tenderness Skin General: warm and dry. Normal skin color. Normal skin turgor Neuro General: patient oriented x3, gait normal and no focal neuro deficit Cranial nerves: Yes Equal, round and reactive pupils present Cognition (Neuro): normal cognition Gait exam (Neuro): Normal gait present Sensory Exam: No Sensory deficit (Neuro) Psych Appearance: grossly normal Affect: normal affect Attitude: cooperative Thought process: Normal thought process present Results AMB Hemoglobin A1c AMB Hemoglobin A1c 6.7 % Last Edit by IVONE Pemberton on 08/24/25 08:48 Coding Level of Care Code Est Pt Level 4 (27477) Complex EM visit Add On G2211 Diagnoses Diabetes E11.9 Dyslipidemia E78.5 Paresthesias in right hand R20.2 Right shoulder pain M25.511 Assessment & Plan Assessment & Plan (1) Diabetes: Code(s): E11.9 - Type 2 diabetes mellitus without complications Category: Medical Plan: A1c today is 6.7%, within goal of less than 7.0%. Previous A1c was 8.0%. Continue current treatment regimen. ADA diet and routine exercise encouraged. Follow-up in 3 months or sooner with symptoms or concerns. Verbalized understanding and agreed with the plan. (2) Dyslipidemia: Code(s): E78.5 - Hyperlipidemia, unspecified Category: Medical Plan: Recent triglycerides was elevated, 203, HDL was slightly low, 38. Total cholesterol and LDL were normal. He consumed significant amount of cheese and whole milk. Advised to limit foods high in saturated fat and avoid foods high in trans fat. Routine exercise encouraged. Fast for 10-12 hours, may drink water, and perform fasting blood work before next visit. Follow-up (3) Paresthesias in right hand: Code(s): R20.2 - Paresthesia of skin Category: Medical Plan: Positive Phalen and Tinel tests of the right 1st, 2nd, and 3rd digits. Carpal tunnel is likely. Encouraged to wear wrist brace at night. Take ibuprofen 600-800 mg every 6 hours as needed and with food. Follow-up with worsening or new symptoms. May referred to occupational therapy. Verbalized understanding and agreed with the plan. (4) Right shoulder pain: Code(s): M25.511 - Pain in right shoulder Category: Medical Plan: ROM within normal limits. No acute symptoms. Ibuprofen as needed. Follow-up with worsening or new symptoms. Verbalized understanding and agreed with the plan. Orders: Orders AMB Hemoglobin A1c Today Z13.9 - Encounter for screening, unspecified
[2025-08-24 08:28] VITALS: BP 140/72; PULSE 82; RESP 16; TEMP 36.7; O2SAT 98; BMI 36.9
[2025-08-24 08:45] VITALS: BP 130/80
== END 2025-08-24 08:58 | disposition home or self-care (01) ==
LOC: HO.HMCFM 08:21
PROVIDERS: PCP Nurse Practitioner Family; Visit Provider Nurse Practitioner Family
DX: E11.9 Type 2 diabetes mellitus without complications (principal); E78.5 Hyperlipidemia, unspecified; R20.2 Paresthesia of skin; M25.511 Pain in right shoulder; Z13.9 Encounter for screening, unspecified

== ENCOUNTER → 2025-08-24 08:20 | Outpatient (BNVA) | payer OTHER, SELFPAY | PROVIDERS: PCP Nurse Practitioner Family; Visit Provider Nurse Practitioner Family | DX: E11.9 Type 2 diabetes mellitus without complications (principal); E78.5 Hyperlipidemia, unspecified; M25.511 Pain in right shoulder; R20.2 Paresthesia of skin | CPT/HCPCS: 83036 ==